=== PATIENT | female | born 1955 | race Caucasian/White ===

== ENCOUNTER 2017-05-22 14:40 | Inpatient (IN) | payer OTHER, SELFPAY ==
[2017-05-22 15:10] LABS: Anion Gap 8 mmol/L (-14-95); T. Carbon Dioxide 30.7 mmol/L (1.0-85.0); pH (Venous) 7.404 (7.35-7.45); vO2 Saturation-calc 95.9 % (0.0-100.0)
[2017-05-22 15:30] LABS: #Lymphocytes 1.6 thou/uL (1.20-3.40); #Monocytes 0.5 thou/uL (0.11-0.59); #Neutrophils 15.8 thou/uL (1.40-6.50); %Basophils 0.1 % (0.0-1.0); %Eosinophils 0.2 % (0.0-10.0); %Lymphocytes 8.9 % (21.0-51.0); %Monocytes 2.6 % (0.0-10.0); Hematocrit 50.5 % (36.0-47.0); Mean Platelet Volume 6.6 fL (7.4-10.4); Red Blood Cell (RBC) Count 5.68 mill/uL (4.20-5.40); White Blood Cell (WBC) Count 17.9 thou/uL (4.8-10.8)
--- NOTE | 2017-05-22 15:32 | RAD ---
CHEST ONE VIEW: HISTORY: Chronic obstructive pulmonary disease exacerbation. COMPARISON: Chest one view from 04/19/2013. FINDINGS: The lungs are hyperinflated. No pneumothorax. No focal air space consolidation or effusion. The ca rdiac silhouette and mediastinal contour are similar. There is a nodular density projecting in the right lower lobe, likely nipple shadow. Follow up with n ipple markers can be obtained. IMPRESSION: Mild lung hyperinflation suggestive of obstructive pulmonary disease. No acute intrathoracic abnorma lities appreciated. POS: C
[2017-05-22 15:47] LABS: Troponin I Less than 0.010 ng/mL (< 0.028)
[2017-05-22 15:49] LABS: ALT (SGPT) 17 U/L (8-55); AST (SGOT) 11 U/L (5-34); Alkaline Phosphatase 104 U/L (40-150); Anion Gap 14 mmol/L (10-20); BUN (Urea Nitrogen) 16 mg/dL (9.8-20.1); Bilirubin, Total 0.6 mg/dL (0.2-1.2); Calc. Creatinine Clearance 0 mL/min (70-130); Calcium 9.6 mg/dL (7.8-10.44); Carbon Dioxide 28 mmol/L (23-31); Chloride 102 mmol/L (98-107); Estimated GFR-MDRD 75; Globulin 2.7 g/dL (2.4-3.5)
[2017-05-22 16:27] LABS: Bilirubin Negative (Negative); Blood, Urine Negative (Negative); Glucose, Urine (Dipstick) Negative (Negative); Ketone, Urine Negative (Negative); Nitrite Negative (Negative); Protein, Urine (Dipstick) Negative (Neg-Trace); Urobilinogen 0.2 mg/dL (0.2-1.0)
[2017-05-22] MEDS ORDERED: Zolpidem Tartrate 5 MG TAB PO PRN (17:52)
[2017-05-22] MEDS ORDERED: Ondansetron HCl/PF 4 MG/2 ML Vial IVP PRN (17:52)
[2017-05-22] MEDS ORDERED: HYDROcodone/Acetaminophen 5/325 mg Tablet PO PRN (17:52)
--- NOTE | 2017-05-22 18:01 | HP ---
PRIMARY CARE PROVIDER: Kmi Post NP CHIEF COMPLAINT: The patient was referred to the [facility] by [facility] for acute respiratory failure and COPD. HISTORY OF PRESENT ILLNESS: The patient states she was hospitalized recently at [facility] for COPD. It was told while she was there she had RSV. She was discharged from the hospital on 05/18/20 17. She was sent home on O2. She was still having shortness of breath. She went for followup appoi ntment with doctor today, received steroids and 2 nebulizer therapies but still have having low O2 sa turation. She denies any fever, chills, or sweats. No chest pain. She has had a cough. Currently she is on albuterol nebs at home with Spiriva HandiHaler and 40 mg of prednisone a day. She had been on Zithromax during her hospital stay and after the hospital for a few days. PAST MEDICAL HISTORY: COPD for 2-3 years, coronary artery disease. She had a small heart attack and 3 stents placed 4 years ago at [facility]. She has hypertension, elevated cholesterol, per ipheral arterial disease. CURRENT MEDICATIONS: Aspirin 81 mg a day, Coenzyme Q10, Lipitor 40 mg a day, tizanidine 4 mg 2 every 8 hours as needed for chest pain, montelukast 10 mg a day, ramipril 5 mg a day, Proventil HFA 2 puff s q.4 hours p.r.n., Lasix 20 mg a day, metoprolol 50 mg twice a day, prednisone 20 mg twice a day, Du ghanshyam twice a day, albuterol nebs q.6 hours at home. ALLERGIES: Listed to dexamethasone unconfirmed, morphine, vancomycin unconfirmed. PAST SURGICAL HISTORY: She had a tubal ligation, tonsillectomy in the distant past. She had spontan eous pneumothorax in 1974 that required a chest tube. FAMILY HISTORY: Her mother is from esophageal CA. Her father from coronary artery dis ease. SOCIAL HISTORY: She is . Her son is at bedside. She quit smoking early in 2009. Drinks no alcohol. CODE STATUS: FULL CODE status. Her is her surrogate decision maker. He is homebound with [employer]. Her son is here. REVIEW OF SYSTEMS: General: She has sinus headaches with no dizziness or fainting. Eyes: She wears glasses. No blurr ed vision, double vision, flashing lights. Ears, nose and throat: No ear pain or drainage. No nasa l bleeding. Musculoskeletal: She has occasional dysphagia when she tries to swallow chunks of food. She states she has bad teeth and has a hard time chewing her food well. Cardiac: No chest pain, o rthopnea or paroxysmal nocturnal dyspnea. Respirations: See present illness. Gastrointestinal: No nausea, vomiting, diarrhea, constipation or melena. Genitourinary: No hematuria or dysuria. Muscu loskeletal: She states she has pain in her feet, swelling in her feet and her feet are always red. Neurologic: No strokes, seizures or focal weakness. Psychiatric: She says she has no anxiety or de pression, but does get anxious when she is short of breath. Skin: She has easy bruising on her arms with no chronic rash. Heme/Lymph: No tender or swollen lymph nodes in axilla, inguinal, or cervica l area and no history of easy bruising. PHYSICAL EXAMINATION: GENERAL: She is an alert, pleasant lady. CURRENT VITAL SIGNS: Blood pressure 149/88, pulse 76, respirations 24, temperature 98.1, O2 sat is c urrently 96 on 4 liters of O2. She was initially on BiPAP. She was weaned off of that. She was bro ught in by student outreach coordinator on BiPAP and was weaned off of that by the emergency room physician. HEENT: Reveal pupils equal, round, and reactive. Extraocular movements are intact. Sclerae white. Tympanic membranes clear. Nose is clear. Oral mucous membranes are damp. Dental hygiene: She has multiple missing teeth, especially on the upper level. NECK: Supple, no jugular venous distention, adenopathy, thyromegaly. CHEST: Hyperresonant with tight wheezes; inspiratory, expiratory in all lung zhou. HEART: Regular rate and rhythm. First and second heart sounds are clear. There are no appreciated murmurs or gallops. ABDOMEN: Soft, bowel sounds are normal. There is no hepatosplenomegaly, no mass, no rebound, no bru its. EXTREMITIES: Reveal 1+ edema. Her distal feet are red bilaterally and cool to touch. SKIN: Warm and dry with some actinic changes on her forearms with some mild ecchymoses related to th inning of the skin and minor trauma. PULSES: Carotid and radial pulses intact. Pedal pulses are significantly diminished. I was unable to palpate pedal pulses. NEUROLOGICAL: Cranial nerves II-XII are intact. Deep tendon reflexes diffusely diminished. Moves a ll extremities. IMAGING: EKG: Regular sinus rhythm with some minimal nonspecific ST-T abnormality, reviewed by me. Chest x-r ay: Reveals mild lung hyperinflation, no cardiomegaly, no CHF, no infiltrate, reviewed by me. LABORATORY DATA: White count 17.9 with an absolute neutrophilia, platelet count is remarkably 955,00 0, hemoglobin is 15.5, hematocrit is 50.5. Arterial blood gas revealed a pH of 7.4, pCO2 of 47, O2 o f 82 on 4 liters of O2. Sodium 139, potassium 4.5, chloride 102, CO2 of 28, BUN 16, creatinine 0.77, blood sugar 123. Liver function tests normal. Cardiac enzymes normal. ADMITTING DIAGNOSES: 1. Acute on chronic respiratory failure, hypoxemic. 2. Chronic obstructive pulmonary disease exacerbation. 3. Coronary artery disease, asymptomatic. 4. Hypertension. 5. Dyslipidemia. 6. Peripheral arterial disease in her legs. 7. Thrombocythemia. PLAN: 1. Admit to medical. 2. Continue IV steroids. She has received 125 mg of Solu-Medrol. She will be continued on 40 mg So liss-Medrol q.6 h. 3. IV Levaquin. 4. DuoNebs q.4 h. schedule q.2h. p.r.n. 5. Dulera 200 two puffs twice a day. 6. Spiriva daily. 7. Selected home medicines. 8. CBC daily. 9. Basic metabolic profile daily. 10. Pulmonary consult. 11. If her platelet count remains dramatically elevated, we will get a Hematology consult.
[2017-05-22 18:55] LABS: Troponin I Less than 0.010 ng/mL (< 0.028)
[2017-05-22] MEDS: Ipratropium Bromide 2.5 ml Neb NEB SCH (19:28)
[2017-05-22 20:01] VITALS: BMI 32.4
[2017-05-22 21:56] LABS: Troponin I Less than 0.010 ng/mL (< 0.028)
[2017-05-22] MEDS: Mometasone/Formoterol 120 PUFF INHALER INH SCH (22:41)
[2017-05-23] MEDS: Ipratropium Bromide 2.5 ml Neb NEB SCH ×4 (00:42→18:34)
[2017-05-23 04:39] LABS: #Eosinphils 0.1 thou/uL (0.0-0.7); #Lymphocytes 1.2 thou/uL (1.20-3.40); #Monocytes 0.2 thou/uL (0.11-0.59); #Neutrophils 16.4 thou/uL (1.40-6.50); %Basophils 0.1 % (0.0-1.0); %Eosinophils 0.5 % (0.0-10.0); %Lymphocytes 6.6 % (21.0-51.0); %Monocytes 0.9 % (0.0-10.0); Hematocrit 49.7 % (36.0-47.0); Mean Platelet Volume 6.9 fL (7.4-10.4); Red Blood Cell (RBC) Count 5.49 mill/uL (4.20-5.40); White Blood Cell (WBC) Count 17.8 thou/uL (4.8-10.8)
[2017-05-23 04:42] LABS: Anion Gap 15 mmol/L (10-20); BUN (Urea Nitrogen) 19 mg/dL (9.8-20.1); Calc. Creatinine Clearance 106 mL/min (70-130); Calcium 9.2 mg/dL (7.8-10.44); Carbon Dioxide 27 mmol/L (23-31); Chloride 101 mmol/L (98-107); Estimated GFR-MDRD 80
[2017-05-23] MEDS: Mometasone/Formoterol 120 PUFF INHALER INH SCH ×2 (06:53→18:50)
[2017-05-23] MEDS: Enoxaparin Sodium 40 MG/0.4 ML SYRINGE SC SCH (07:56)
[2017-05-23] MEDS ORDERED: PROVENTIL INHALER 6.7 G (200 INHALATIONS) INH PRN (12:08)
--- NOTE | 2017-05-23 12:11 | PDOC.PN ---
- Subjective Encounter Start Date: 05/23/17 Encounter Start Time: 12:08 Ms. Aguilar was seen today in follow-up for COPD. She is still feeling " pelon rough " but better. - Objective Resuscitation Status: Resuscitation Status FULL:Full Resuscitation MAR Reviewed: Yes Vital Signs & Weight: Vital Signs (12 hours) Temp Pulse Resp BP BP Pulse Ox 05/23/17 11:29 86 20 95 05/23/17 11:01 97.9 F 102 H 20 154/86 H 96 05/23/17 08:00 97.7 F 82 18 97 05/23/17 07:03 97.7 F 82 18 143/74 H 97 05/23/17 05:59 80 16 98 05/23/17 04:00 97.6 F 82 20 156/83 H 98 05/23/17 00:58 93 L 05/23/17 00:42 82 16 95 Weight Weight 190 lb 0.016 oz Result Diagrams: 05/23/17 03:47 05/23/17 03:47 Phys Exam - Physical Examination HEENT: PERRLA + faint respiratory wheeze, no rhonchi or rales Cardiovascular: RRR, no significant murmur Gastrointestinal: soft, non-tender, positive bowel sounds Musculoskeletal: no edema Dx/Plan (1) Acute and chronic respiratory failure Code(s): J96.20 - ACUTE AND CHR RESP FAILURE, UNSP W HYPOXIA OR HYPERCAPNIA Status: Acute (2) COPD exacerbation Code(s): J44.1 - CHRONIC OBSTRUCTIVE PULMONARY DISEASE W (ACUTE) EXACERBATION Status: Acute (3) Hypertension Code(s): I10 - ESSENTIAL (PRIMARY) HYPERTENSION Status: Acute (4) Coronary artery disease Code(s): I25.10 - ATHSCL HEART DISEASE OF [place] CORONARY ARTERY W/O ANG PCTRS Status: Acute - Plan * COPD exacerbation- improving * Will begin to jadyn steroids * Thrombocytosis- will re-start Aspirin, and consult Hematology- this may be reactive to her current condition * HTN- blood pressure is slightly elevated- re-start her home medications.
[2017-05-23] MEDS: tiZANidine HCl 4 MG TAB PO SCH ×2 (15:06→20:34)
[2017-05-23 16:54] LABS: Uric Acid 3.8 mg/dL (2.6-6.0)
--- NOTE | 2017-05-23 16:57 | CON ---
DATE OF CONSULTATION: 05/23/2017 REASON FOR CONSULTATION: Thrombocytosis. HISTORY OF PRESENT ILLNESS: Ms. Aguilar is a very pleasant 62-year-old female who was recently discharged from [facility] for RSV infection and COPD exacerbation. She was sent home on O2 and 40 mg of prednisone daily. She followed up with her primary care and was noted to be hypoxic with low oxygen saturation, so she came to the emergency room here for evaluation. Her oxygen saturation was 82% on 4 liters. She was started on IV steroids and antibiotics and admitted. Lab on admission showed a white count of 17.9, hemoglobin of 15.5 and a platelet count of 955,000. She had 88% neutrophils and 9% lymphocytes. She did receive a dose of Solu-Medrol 125 mg on admission and has remained on 40 mg IV daily. She denies any knowledge of prior elevated platelet count. She denies any history of bleeding or clotting. No family history of blood disorders. She denies any headache or blurred vision, no chest pain. She is positive for shortness of breath and cough. Denies any abdominal pain. No hematuria, hematochezia or melena. PAST MEDICAL HISTORY: 1. COPD. 2. Coronary artery disease with a stent placement 4 years ago. 3. Hypertension. 4. High cholesterol. 5. Peripheral arterial disease. PAST SURGICAL HISTORY: She had a tubal ligation, a tonsillectomy, and pneumothorax in 1974. CURRENT HOME MEDICATIONS: 1. Proventil inhaler. 2. Aspirin 81 mg daily. 3. Atorvastatin 40 mg daily. 4. Lasix 20 mg daily. 5. Lopressor 50 mg b.i.d. 6. Singulair daily. 7. Prednisone 40 mg daily. 8. Ramipril 5 mg daily. 9. Tizanidine 4 mg t.i.d. 10. CoQ10 daily. FAMILY HISTORY: Her mother had esophageal cancer. SOCIAL HISTORY: . Her son is at bedside. She is a previous smoker, quit in 2009. No alcohol or illicit drug use. REVIEW OF SYSTEMS: Twelve-point review of systems is negative except for noted in HPI. PHYSICAL EXAMINATION: VITAL SIGNS: Temperature is 97.9, pulse is 86, respiratory rate 20, BP is 154/ 86. She is 95% on 2 L. GENERAL: Chronically ill-appearing female in no acute distress. HEENT: Normocephalic, atraumatic. Pupils equal and reactive to light. NECK: Supple. CARDIOVASCULAR: Regular rate and rhythm. LUNGS: Diminished with expiratory wheezing. EXTREMITIES: No clubbing, cyanosis or edema. SKIN: No rash. HEMATOLOGIC: No petechia or purpura. NEUROLOGIC: Nonfocal. PSYCHIATRIC: The patient is alert and oriented and appropriate. PERTINENT LABORATORY AND X-RAYS: Current WBCs are 17.8, hemoglobin 14.9, hematocrit 49.7, platelet count is 859,000, 92% neutrophils, 7% lymphocytes. Sodium is 138, potassium 5.2, chloride 101, CO2 is 27, BUN is 19, creatinine 0.73, calcium is 9.2, total bilirubin is 0.6, AST is 11, ALT is 17, alkaline phosphatase is 104, CK-MB is 2.1, total protein is 7, albumin 4.3, globulin 2.7 , troponin was negative. Chest x-ray showed hyperinflation consistent with COPD. IMPRESSION: 1. Thrombocytosis present since 2012, likely exacerbated by steroids. 2. Chronic obstructive pulmonary disease exacerbation. 3. Recent respiratory syncytial virus infection. DISCUSSION: The patient's platelets have been elevated in [place] since 2002 when they were 516,000. 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 We will check JAK2 mutation. She is already taking aspirin 81 mg daily and she should continue. I do feel like her steroid usage over the last 2 weeks has increased her platelet count. I would recommend that she follow up in the outpatient setting in the next 2 weeks to recheck her labs and follow her more closely. Should she be JAK2 positive, we will start hydroxyurea daily. Thank you for the consult. We will follow her hospital course closely. FAVIOLA
[2017-05-23] MEDS: Montelukast Sodium 10 mg Tablet PO SCH (20:34)
[2017-05-24] MEDS: Ipratropium Bromide 2.5 ml Neb NEB SCH ×4 (01:11→19:16)
[2017-05-24 04:40] LABS: #Basophils 0.1 thou/uL (0.0-0.2); #Eosinphils 0.1 thou/uL (0.0-0.7); #Lymphocytes 2.9 thou/uL (1.20-3.40); #Monocytes 1.5 thou/uL (0.11-0.59); #Neutrophils 12.7 thou/uL (1.40-6.50); %Basophils 0.4 % (0.0-1.0); %Eosinophils 0.3 % (0.0-10.0); %Lymphocytes 16.9 % (21.0-51.0); %Monocytes 8.5 % (0.0-10.0); Hematocrit 47.9 % (36.0-47.0); Mean Platelet Volume 6.8 fL (7.4-10.4); Red Blood Cell (RBC) Count 5.33 mill/uL (4.20-5.40); White Blood Cell (WBC) Count 17.2 thou/uL (4.8-10.8)
[2017-05-24 04:52] LABS: Anion Gap 15 mmol/L (10-20); BUN (Urea Nitrogen) 22 mg/dL (9.8-20.1); Calc. Creatinine Clearance 102 mL/min (70-130); Calcium 9.4 mg/dL (7.8-10.44); Carbon Dioxide 26 mmol/L (23-31); Chloride 102 mmol/L (98-107); Estimated GFR-MDRD 77
[2017-05-24] MEDS: Mometasone/Formoterol 120 PUFF INHALER INH SCH ×2 (06:08→19:13)
[2017-05-24] MEDS: tiZANidine HCl 4 MG TAB PO SCH ×3 (08:13→20:14)
[2017-05-24] MEDS: Ubidecarenone 50 MG CAP PO SCH (08:13)
[2017-05-24] MEDS: Ramipril 5 MG CAP PO SCH (08:13)
[2017-05-24] MEDS: Atorvastatin Calcium 40 MG TAB PO SCH (08:14)
[2017-05-24] MEDS: Enoxaparin Sodium 40 MG/0.4 ML SYRINGE SC SCH (08:14)
--- NOTE | 2017-05-24 09:22 | PDOC.PN ---
- Subjective Encounter Start Date: 05/24/17 Encounter Start Time: 09:22 Subjective: palpatations, needs to "burp" - Objective Resuscitation Status: Resuscitation Status FULL:Full Resuscitation MAR Reviewed: Yes Vital Signs & Weight: Vital Signs (12 hours) Temp Pulse Resp BP BP Pulse Ox 05/24/17 08:13 155/82 H 05/24/17 08:00 97.7 F 159 H 93 H 155/82 H 20 L 05/24/17 06:08 107 H 18 95 05/24/17 06:06 107 H 18 95 05/24/17 04:00 97.8 F 80 20 115/75 93 L 05/24/17 02:39 94 L 05/24/17 01:11 77 12 05/24/17 00:00 97.7 F 78 20 94/63 100 Weight Weight 190 lb 0.016 oz I&O: 05/23/17 05/24/17 05/25/17 06:59 06:59 06:59 Intake Total 2600 Balance 2600 Result Diagrams: 05/24/17 03:53 05/24/17 03:53 Radiology Reviewed by me: Yes (AF WITH RVR) Phys Exam - Physical Examination Constitutional: NAD Neck: no JVD decreased BS, mild wheezes Cardiovascular: irregular tachy Gastrointestinal: soft, non-tender, positive bowel sounds Musculoskeletal: no edema Dx/Plan (1) Atrial fibrillation with rapid ventricular response Code(s): I48.91 - UNSPECIFIED ATRIAL FIBRILLATION Status: Acute (2) Acute and chronic respiratory failure Code(s): J96.20 - ACUTE AND CHR RESP FAILURE, UNSP W HYPOXIA OR HYPERCAPNIA Status: Acute (3) COPD exacerbation Code(s): J44.1 - CHRONIC OBSTRUCTIVE PULMONARY DISEASE W (ACUTE) EXACERBATION Status: Acute (4) Coronary artery disease Code(s): I25.10 - ATHSCL HEART DISEASE OF [place] CORONARY ARTERY W/O ANG PCTRS Status: Acute (5) Hypertension Code(s): I10 - ESSENTIAL (PRIMARY) HYPERTENSION Status: Acute - Plan cardizem 15mg bolus, then iv infusion -: serial tropnins -: cont nebs , etc * .
[2017-05-24] MEDS ORDERED: Magnesium 2 GM/NS 0.9% 100 ML 2 GM in Premix Bag 1 BAG IVPB SCH (10:45)
[2017-05-24] MEDS ORDERED: Enoxaparin Sodium 100 MG/ML SYRINGE SC SCH (11:00)
--- NOTE | 2017-05-24 12:07 | CON ---
DATE OF CONSULTATION: 05/24/2017 HISTORY: Alma Delia Aguilar is a 62-year-old obese female with severe COPD. In fact, she had a P FT done some time back, which showed an FEV1 was only 0.63. Less than 35% of predicted, FVC was 1.50 , less than 1.95 predicted. With marked hyperinflation. Most days she can barely walk even 50 feet without getting markedly short of breath. She is a former smoker, though she says she quit smoking for a period of time. She was seen in the ER last 24-48 ho urs with respiratory distress. No chest pain, chills or sweats. She has a known history of SVT. She saw her primary care physician, Dr. Kim Lopes and was given some prednisone. PAST MEDICAL HISTORY: Carotid disease, multiple stents, SVT, hypertension, high cholesterol, periphe ral vascular disease, severe chronic obstructive pulmonary disease, former smoker. PAST SURGICAL HISTORY: Tonsils and tubal ligation, pneumothorax 1974, chest tube. 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 HOME MEDICATIONS: Lasix 20, Enalapril 5, Tizanidine 4, prednisone 40, Singulair 10, Lopressor 50, at orvastatin, CQ 10, aspirin, sulfate. REVIEW OF SYSTEMS: Ten point negative. PHYSICAL EXAMINATION: GENERAL: Sats 95, pulse 79, blood pressure 110/74, respirations 24. CHEST: Decreased breath sounds with prolonged expiration, minimal wheezing. CARDIAC: Supraventricular tachycardia. ABDOMEN: Soft. LABORATORY: White count 20,000, H&H 14 and 47, platelet count normal, electrolytes are normal. LDH 244. IMPRESSION: 1. Respiratory failure. 2. Chronic obstructive pulmonary disease exacerbation. 3. Bronchitis. 4. Supraventricular tachycardia. 5. Atrial fibrillation. 6. Coronary artery disease. 7. Hypertension. PLAN: Magnesium is being started. She is still in rapid atrial fibrillation at a rate of 195. If she does not convert, will switch her to amiodarone. Consult Cardiology, Dr. Mcclain has been her doctor. I will follow.
[2017-05-24] MEDS ORDERED: Digoxin 0.5 MG/2 ML AMP ONE (12:15)
[2017-05-24 12:29] LABS: Troponin I 0.072 ng/mL (< 0.028)
[2017-05-24] MEDS ORDERED: Metoprolol Tartrate 5 MG/5 ML VIAL ONE (12:31)
[2017-05-24] MEDS ORDERED: Dronedarone HCl 400 MG TAB PO SCH (13:15)
[2017-05-24 15:49] LABS: Troponin I 0.121 ng/mL (< 0.028)
--- NOTE | 2017-05-24 15:57 | CON ---
DATE OF CONSULTATION: 05/24/2017 CARDIOLOGY CONSULT NOTE HISTORY OF PRESENT ILLNESS: This is a 62-year-old female with new onset atrial fibrillation with rapid ventricular response. She appears to be in the hospital after having a respiratory virus and has increasing COPD with decreased O2 saturations. She was on the medical floor when early this morning her vital signs were found to show irregular fast heart rate. EKG was obtained , she was found to have a heart rate of over 200 with what appeared to be atrial fibrillation when she was transferred down to the Intensive Care Unit for closer monitoring and evaluation. By the time I am seeing the patient, she has already been started on IV diltiazem at 15 mg an hour of the diltiazem and continues to have heart rate in the 180 range. Her blood pressure was somewhat decreased at 107/57, but she denied any chest pain. EKG did show evidence of EKG changes compatible with probable ischemia of both anterior lateral as well as the inferior. We were asked to see her for rate control and to help with assistance in her atrial fibrillation. She did undergo angioplasty and stent placement in 11/2012, I believe by Dr. Mcclain where she underwent an angioplasty and stent placement to the midright coronary artery with a 3.5 x 12 mm stent and also had a 2.5 x 12 mm stent placed into the right posterior descending artery. She had been doing very well since that time from a cardiac standpoint as far as we know. She denied any chest pain and had been doing well after she developed her respiratory problems. Her cardiac enzymes on admission were negative, but the last cardiac set of enzymes shows a troponin I of 0.072, which would not be unusual at all with someone with a heart rate of 200 with atrial fibrillation and when EKG changes compatible with ischemia. Hopefully, this will resolve after the heart rate is brought under better control. PAST MEDICAL HISTORY: Significant for coronary artery disease, myocardial infarction for which she underwent angioplasty and stent placement. She has a history of COPD. She has history of upper respiratory tract viral infection of RSV recently. She also had 2 spontaneous pneumothorax in the past. She did have a tonsillectomy, according to the records. SOCIAL HISTORY: She is . She has children who are alive and well. She stopped smoking in 2009. She has no alcohol use. She pretty much sits at home and has minimal activity due to her COPD. FAMILY HISTORY: Noncontributory. MEDICATIONS PRIOR TO ADMISSION: Included aspirin, CoQ10, atorvastatin, tizanidine, montelukast, ramipril, Proventil inhaler, furosemide, metoprolol, which she was taking 50 mg b.i.d. ALLERGIES: She is allergic to VANCOMYCIN, PAPER TAPE, and MORPHINE. REVIEW OF SYSTEMS: She wears glasses. She had no other HEENT complaints. She has poor dentition. Pulmonary: She mainly complained of COPD and shortness of breath. She no longer smokes. Cardiovascular: She had no complaints. She did not notice she was having a rapid heart rate earlier today. She has had no chest pain previously since her myocardial infarction. Gastrointestinal: No nausea, vomiting or diarrhea. No complaints such as dysuria, polyuria, or hematuria. Musculoskeletal: She has occasional edema, but otherwise unremarkable. Neurologically, no history of seizures or syncope. PHYSICAL EXAMINATION: GENERAL: Reveals an elderly female in no acute distress at this time. She was sitting on the side of the bed eating lunch. VITAL SIGNS: Her heart rate was in the 180s. Blood pressure was 120/81, patient was 107/57 and repeat is now about 130/87 after she has been given further medications. Heart rate has gone from 183 down to 1-100 to 110s. HEENT: Reveals the head to be normocephalic and atraumatic. Carotid pulses are present. There were no significant bruits. LUNGS: Chest has decreased breath sounds throughout. I cannot hear any significant rales, rhonchi or wheezing at this time. CARDIOVASCULAR: Reveals a tachycardia. Heart sounds are somewhat distant. She has a regular rhythm. I did not hear any gross murmurs, heaves, thrills, bruits or rubs. ABDOMEN: Obese with positive bowel sounds. No organomegaly or masses are noted. Femoral pulses are present. EXTREMITIES: Palpable femoral and popliteal pulses are present but decreased. I could not palpate pedal pulses. She has mild ankle edema. NEUROLOGIC: She appears to be fully intact. She seems to have normal strength and tone. SKIN: Warm and dry. She does have multiple areas of scarring on the forearms, however. IMAGING: EKG shows atrial fibrillation with rapid ventricular response with ST segment changes diffusely compatible with ischemia. IMPRESSION: 1. Atrial fibrillation with rapid ventricular response. She was on IV diltiazem at 15 mg an hour. I then gave her 0.5 mg of IV digoxin as well as 0.2 mg of IV Lopressor very slowly, this brought her heart rate down to the 110s from being 180 beats per minute. She felt somewhat better. The blood pressure did increase up to 130/87. With minimal activity, the heart rate increases again suddenly up to 120s to 130s. We will continue this medication. I will start her on Multaq. We will discuss this whether or not we may put her on amiodarone for long-term, some concern about the pulmonary problems with long-term amiodarone. She may need to undergo ablation of the atrial fibrillation. This may be the best option for her. We will obtain an echocardiogram for evaluation of the left atrial size and also for the left ventricular systolic function. If she does not convert and continues to have rapid episodes of atrial fibrillation, she may need to undergo early cardioversion, but I will try to start her on Multaq at least to have this on board prior to attempting electrical cardioversion, but if necessary, she will need to undergo early cardioversion. She has already been placed on Lovenox. We will continue that medication for now. 2. History of CAD with stent placement. She has been asymptomatic since were put in until now with the atrial fibrillation. She still denies any chest pain. 3. Severe chronic obstructive pulmonary disease. She was seen earlier today, I believe by the electronic equipment installer. She has not had a routine electronic equipment installer but has been seen by the primary physicians primary care service for her chronic obstructive pulmonary disease. 4. She does have thrombocytosis, platelet count was 729,000. This is actually I believe decreased than what it was earlier and she has been seen by Hematology. 5. Abnormal cardiac enzymes and on admission, they were negative, but now have increased slightly to 0.072, which is still indeterminate, most likely due to the atrial fibrillation with rapid ventricular response. We will continue to follow her with you, but at this time the main objective is to continue the anticoagulation and to try to decrease her heart rate. FAVIOLA
[2017-05-24] MEDS: Dronedarone HCl 400 MG TAB PO SCH (17:23)
[2017-05-24] MEDS: Digoxin 0.5 MG/2 ML AMP SLOW IVP SCH (20:13)
[2017-05-24] MEDS: Enoxaparin Sodium 100 MG/ML SYRINGE SC SCH (20:13)
[2017-05-24] MEDS: Montelukast Sodium 10 mg Tablet PO SCH (20:14)
[2017-05-24] MEDS: Metoprolol Tartrate 25 MG TAB PO SCH (20:14)
[2017-05-24] MEDS ORDERED: Enoxaparin Sodium 60 MG/0.6 ML SYRINGE SC SCH (21:00)
[2017-05-25] MEDS: Digoxin 0.5 MG/2 ML AMP SLOW IVP SCH (00:35)
[2017-05-25] MEDS: Ipratropium Bromide 2.5 ml Neb NEB SCH ×5 (00:38→23:40)
[2017-05-25] MEDS: Mometasone/Formoterol 120 PUFF INHALER INH SCH ×2 (06:42→18:45)
[2017-05-25] MEDS: Ubidecarenone 50 MG CAP PO SCH (08:24)
[2017-05-25] MEDS: Enoxaparin Sodium 100 MG/ML SYRINGE SC SCH ×2 (08:24→20:31)
[2017-05-25] MEDS: Dronedarone HCl 400 MG TAB PO SCH ×2 (08:24→16:57)
[2017-05-25] MEDS: Ramipril 5 MG CAP PO SCH (08:25)
[2017-05-25] MEDS: Atorvastatin Calcium 40 MG TAB PO SCH (08:25)
[2017-05-25] MEDS: Digoxin 0.125 MG TAB PO SCH (08:25)
[2017-05-25] MEDS: tiZANidine HCl 4 MG TAB PO SCH ×3 (08:25→20:31)
[2017-05-25] MEDS: Metoprolol Tartrate 25 MG TAB PO SCH ×2 (08:25→20:31)
--- NOTE | 2017-05-25 09:35 | PRG ---
DATE OF SERVICE: 05/25/2017 SUBJECTIVE: Ms. Aguilar still having some trouble breathing, but overall is better. PHYSICAL EXAMINATION: VITAL SIGNS: Blood pressure is high 137/63, pulse 100 and it is regular. LUNGS: Somewhat distant, but no wheezing. CARDIAC: Normal S1 and S2. ABDOMEN: Soft, nontender. The patient did convert to sinus rhythm. ASSESSMENT: 1. Atrial fibrillation, paroxysmal, but now back in normal rhythm. 2. History of hypercholesterolemia. 3. History of hypertension. PLAN: 1. Continue Multaq. 2. Continue enoxaparin. 3. The patient does not have medication insurance, we will need to start on Coumadin.
--- NOTE | 2017-05-25 10:03 | EKG ---
Test Reason : Blood Pressure : / mmHG Vent. Rate : 201 BPM Atrial Rate : 149 BPM P-R Int : 000 ms QRS Dur : 080 ms QT Int : 202 ms P-R-T Axes : 000 080 263 degrees QTc Int : 369 ms Atrial fibrillation with rapid ventricular response Marked ST abnormality, possible inferior subendocardial injury Marked ST abnormality, possible anterolateral subendocardial injury Abnormal ECG When compared with ECG of 22-MAY-2017 14:54, (Unconfirmed) Significant changes have occurred Confirmed by MICHELLE KING, DR. Soto ([id number]) on 05/25/2017 10:03:23 AM Referred By: ANAHI Confirmed By:DR. Brittany MARITNEZ MD
[2017-05-25 10:39] LABS: Prothrombin Time 14.1 SEC (12.0-14.7)
--- NOTE | 2017-05-25 11:07 | PRG ---
DATE OF SERVICE: 05/25/2017 SUBJECTIVE: This morning, the patient is better, less short of breath. PHYSICAL EXAMINATION: VITAL SIGNS: Blood pressure is 130/60, sats are 92% on 2 liters, pulse 101, respiration 18. CHEST: Decreased breath sounds, no wheezing. CARDIAC: Normal S1, S2. No gallops. ABDOMEN: Soft, no masses. IMPRESSION: Chronic obstructive pulmonary disease exacerbation, bronchitis. PLAN: Continue present treatment. Neb treatments, supportive care. Switch her to oral prednisone. We will follow.
[2017-05-25] MEDS: Acetaminophen 325 MG TAB PO PRN (16:57)
[2017-05-25] MEDS: Warfarin Sodium 5 MG TAB PO SCH (16:58)
[2017-05-25] MEDS ORDERED: Warfarin Sodium 5 MG TAB PO SCH (17:00)
--- NOTE | 2017-05-25 19:05 | PDOC.PN ---
- Subjective Encounter Start Date: 05/25/17 Encounter Start Time: 09:30 Patient seen and examined. No new complaints. No overnight events. No CP/SOB. - Objective Resuscitation Status: Resuscitation Status FULL:Full Resuscitation MAR Reviewed: Yes Vital Signs & Weight: Vital Signs (12 hours) Temp Pulse Resp BP BP Pulse Ox 05/25/17 18:29 74 18 95 05/25/17 16:57 61 102/56 L 05/25/17 16:05 97.3 F L 66 18 97/53 L 93 L 05/25/17 13:10 72 16 05/25/17 11:40 97.5 F L 66 20 107/55 L 94 L 05/25/17 08:25 101 H 05/25/17 08:20 97.7 F 101 H 20 92 L 05/25/17 08:18 97.7 F 101 H 20 137/63 92 L Weight Weight 183 lb Most Recent Monitor Data Heart Rate from ECG 78 NIBP 98/55 NIBP BP-Mean 78 Respiration from ECG 25 SpO2 96 I&O: 05/24/17 05/25/17 05/26/17 06:59 06:59 06:59 Intake Total 2600 1214.9 1440 Output Total 650 1050 Balance 2600 564.9 390 Result Diagrams: 05/24/17 03:53 05/24/17 03:53 EKG Reviewed by me: Yes (Tele SR) Phys Exam - Physical Examination Constitutional: NAD Respiratory: no wheezing, no rhonchi Scat rales Cardiovascular: RRR, no rub Gastrointestinal: soft, non-tender, positive bowel sounds Musculoskeletal: no edema Neurological: non-focal, moves all 4 limbs Psychiatric: A&O x 3 Dx/Plan - Plan IMPRESSION: 1. Acute hypoxic resp failure due to COPD exacerbation - s/p NIPPV. Pulm following 2. Afib with RVR - in SR - Anticoag started. 3. Elevated troponins due to demand ischemia 4. Hyperkalemia - resolved 5. CAD 6. HTN 7. Obesity BMI 31.2 PLAN: * Cont current meds as below * Cont supportive care * On anticoag/Multaq * Cont nebs/steroids * AM labs * Add Pepcid Review of Systems - Review of Systems Respiratory: negative: Cough, Dry, Shortness of Breath, Hemoptysis, SOB with Excertion, Pleuritic Pain, Sputum, Wheezing Cardiovascular: negative: Chest Pain, Palpitations, Orthopnea, Paroxysmal Noc. Dyspnea, Edema, Light Headedness, Other Gastrointestinal: negative: Nausea, Vomiting, Abdominal Pain, Diarrhea, Constipation, Melena, Hematochezia, Other - Medications/Allergies Allergies/Adverse Reactions: Allergies Allergy/AdvReac Type Severity Reaction Status Date / Time adhesive Allergy Verified 12/06/12 09:46 morphine Allergy Verified 05/22/17 17:56 vancomycin Allergy Verified 05/22/17 17:56 Medications: Current Medications Acetaminophen (Tylenol) 650 mg PO Q4H PRN PRN Reason: Headache/Fever or Pain Last Admin: 05/25/17 16:57 Dose: 650 mg Hydrocodone Bitart/Acetaminophen ([place] 5/325) 1 tab PO Q4H PRN PRN Reason: Moderate Pain (4-6) Albuterol Sulfate (Proventil Hfa) 2 puff INH Q6H PRN PRN Reason: SOB &/or Wheezing Albuterol/Ipratropium (Duoneb) 3 ml NEB [id number] PRN PRN Reason: SOB &/or Wheezing Last Admin: 05/25/17 00:20 Dose: 3 ml Aspirin (Aspirin Chewable) 81 mg PO DAILY [facility] Last Admin: 05/25/17 08:25 Dose: 81 mg Atorvastatin Calcium (Lipitor) 40 mg PO DAILY [facility] Last Admin: 05/25/17 08:25 Dose: 40 mg Coenzyme Q10 (Coenzyme Q10) 50 mg PO DAILY [facility] Last Admin: 05/25/17 08:24 Dose: Not Given Digoxin (Lanoxin) [facility].125 [facility] [place] Last Admin: 05/25/17 08:25 Dose: 0.125 mg Dronedarone (Multaq) 400 mg PO BID-[facility] Last Admin: 05/25/17 16:57 Dose: 400 mg Enoxaparin Sodium (Lovenox) 90 mg SC 0900,2100 [facility] Last Admin: 05/25/17 08:24 Dose: 90 mg Ipratropium [place] (Atrovent) 2.5 ml NEB [id number] [facility] Last Admin: 05/25/17 18:29 Dose: 2.5 ml Metoprolol Tartrate (Lopressor) 25 mg PO BID [facility] Last Admin: 05/25/17 08:25 Dose: 25 mg Mometasone Furoate/Formoterol Fumar (Dulera 200 Mcg/5 Mcg Inhaler) 2 puff INH BID-[facility] Last Admin: 05/25/17 18:45 Dose: 2 puff Montelukast Sodium (Singulair) 10 mg PO HS [facility] Last Admin: 05/24/17 20:14 Dose: 10 mg Prednisone (Prednisone) 40 mg PO QAM-[facility] Ramipril (Altace) 5 mg PO DAILY [facility] Last Admin: 05/25/17 08:25 Dose: 5 mg Sodium Chloride (Flush - Normal Saline) 10 ml IVF Q12HR [facility] Last Admin: 05/25/17 08:26 Dose: 10 ml Sodium Chloride (Flush - Normal Saline) 10 ml IVF PRN PRN PRN Reason: Saline Flush Last Admin: 05/24/17 20:14 Dose: 10 ml Tizanidine HCl (Zanaflex) 4 mg PO TID [facility] Last Admin: 05/25/17 14:27 Dose: 4 mg Warfarin Sodium (Coumadin) 5 mg PO 1700 [facility] Last Admin: 05/25/17 16:58 Dose: 5 mg Zolpidem Tartrate (Ambien) 5 mg PO HSPRN PRN PRN Reason: Insomnia
[2017-05-25] MEDS: Montelukast Sodium 10 mg Tablet PO SCH (20:31)
[2017-05-26 05:42] LABS: Anion Gap 10 mmol/L (10-20); BUN (Urea Nitrogen) 25 mg/dL (9.8-20.1); BUN/Creatinine Ratio 30.86; Calc. Creatinine Clearance 92 mL/min (70-130); Calcium 9.9 mg/dL (7.8-10.44); Carbon Dioxide 33 mmol/L (23-31); Chloride 96 mmol/L (98-107); Estimated GFR-MDRD 71; Magnesium 2.3 mg/dL (1.6-2.6); Phosphorus 4.2 mg/dL (2.3-4.7)
[2017-05-26 05:43] LABS: Prothrombin Time 14.3 SEC (12.0-14.7)
[2017-05-26 05:44] LABS: Hematocrit 48.6 % (36.0-47.0); Mean Platelet Volume 6.9 fL (7.4-10.4); Red Blood Cell (RBC) Count 5.46 mill/uL (4.20-5.40); White Blood Cell (WBC) Count 23.4 thou/uL (4.8-10.8)
[2017-05-26] MEDS: Ipratropium Bromide 2.5 ml Neb NEB SCH ×3 (07:01→18:46)
[2017-05-26] MEDS: Mometasone/Formoterol 120 PUFF INHALER INH SCH ×2 (07:11→18:46)
[2017-05-26] MEDS: Dronedarone HCl 400 MG TAB PO SCH ×2 (08:20→16:51)
[2017-05-26] MEDS: Ubidecarenone 50 MG CAP PO SCH (08:20)
[2017-05-26] MEDS: Atorvastatin Calcium 40 MG TAB PO SCH (08:20)
[2017-05-26] MEDS: predniSONE 20 MG TAB PO SCH (08:20)
[2017-05-26 08:21] LABS: Neutrophil 88 % (42-75); Polychromasia SLIGHT = 2-3 cells (100X) (0-2/hpf)
[2017-05-26] MEDS: Metoprolol Tartrate 25 MG TAB PO SCH ×2 (08:21→20:19)
[2017-05-26] MEDS: tiZANidine HCl 4 MG TAB PO SCH ×3 (08:21→20:19)
[2017-05-26] MEDS: Digoxin 0.125 MG TAB PO SCH (08:21)
[2017-05-26] MEDS: Ramipril 5 MG CAP PO SCH (08:21)
[2017-05-26] MEDS: Famotidine 20 MG TAB PO SCH ×2 (08:21→20:18)
[2017-05-26] MEDS: Enoxaparin Sodium 100 MG/ML SYRINGE SC SCH ×2 (08:22→20:19)
[2017-05-26] MEDS ORDERED: Warfarin Sodium 5 MG TAB PO SCH (09:00)
--- NOTE | 2017-05-26 09:20 | PRG ---
DATE OF SERVICE: 05/26/2017 SUBJECTIVE: Ms. Aguilar is feeling well today, no complaints. She is not short of breath. PHYSICAL EXAMINATION: VITAL SIGNS: Blood pressure 132/68, pulse 68, it is sinus. LUNGS: No rales, no new findings. CARDIAC: Normal S1 and normal S2. ASSESSMENT: 1. Paroxysmal atrial fibrillation, maintaining sinus rhythm. 2. Chronic obstructive pulmonary disease. 3. High platelet count. PLAN: 1. Continue Coumadin. She got Coumadin 5 mg last night. We will give her an extra dose today. 2. Continue enoxaparin. 3. Continue Multaq. 4. Dr. Bell to resume the patient's care tomorrow.
--- NOTE | 2017-05-26 10:16 | PDOC.PN ---
- Subjective Encounter Start Date: 05/26/17 Encounter Start Time: 07:45 -: old records requested/rev pt is feeling better but not baseline level, she was not on home oxygen before - Objective Resuscitation Status: Resuscitation Status FULL:Full Resuscitation MAR Reviewed: Yes Vital Signs & Weight: Vital Signs (12 hours) Temp Pulse Resp BP BP Pulse Ox 05/26/17 08:21 68 132/68 05/26/17 07:11 58 L 16 05/26/17 07:03 98 05/26/17 07:01 58 L 16 05/26/17 04:00 97.8 F 66 20 133/71 96 05/25/17 23:40 56 L 18 100 05/25/17 23:24 98.4 F 58 L 20 104/57 L 98 Weight Weight 183 lb Most Recent Monitor Data Heart Rate from ECG 78 NIBP 98/55 NIBP BP-Mean 78 Respiration from ECG 25 SpO2 96 I&O: 05/25/17 05/26/17 05/27/17 06:59 06:59 06:59 Intake Total 1214.9 2040 Output Total 650 1050 Balance 564.9 990 Result Diagrams: 05/26/17 05:01 05/26/17 05:01 EKG Reviewed by me: Yes (nsr) Phys Exam - Physical Examination Constitutional: NAD HEENT: PERRLA, moist MMs, sclera anicteric Neck: no JVD, supple Respiratory: no wheezing, no rales, no rhonchi reduced air entry both side Cardiovascular: RRR, no significant murmur, no rub Gastrointestinal: soft, non-tender, no distention, positive bowel sounds Musculoskeletal: no edema, pulses present Neurological: non-focal, normal sensation, moves all 4 limbs Psychiatric: normal affect, A&O x 3 Skin: no rash, normal turgor Dx/Plan (1) Acute on chronic respiratory failure with hypoxemia Code(s): J96.21 - ACUTE AND CHRONIC RESPIRATORY FAILURE WITH HYPOXIA Status: Acute (2) Atrial fibrillation with rapid ventricular response Code(s): I48.91 - UNSPECIFIED ATRIAL FIBRILLATION Status: Acute Comment: now rate controlled (3) COPD exacerbation Code(s): J44.1 - CHRONIC OBSTRUCTIVE PULMONARY DISEASE W (ACUTE) EXACERBATION Status: Acute (4) Demand ischemia Code(s): I24.8 - OTHER FORMS OF ACUTE ISCHEMIC HEART DISEASE Status: Acute (5) Reactive thrombocytosis Code(s): R79.89 - OTHER SPECIFIED ABNORMAL FINDINGS OF BLOOD CHEMISTRY Status : Acute (6) Coronary artery disease Code(s): I25.10 - ATHSCL HEART DISEASE OF [place] CORONARY ARTERY W/O ANG PCTRS Status: Chronic (7) Hypertension Code(s): I10 - ESSENTIAL (PRIMARY) HYPERTENSION Status: Chronic (8) Obesity (BMI 30.0-34.9) Code(s): E66.9 - OBESITY, UNSPECIFIED Status: Chronic - Plan cont current plan of care, continue antibiotics, respiratory therapy * will need to assess daily for home oxygen as she was not using before this admission and she does not have * continue current optimum medical therapy for COPD * pt is slowly improving * medication reviewed as below * symptomatic treatment. * cardiology following * warfarin started, will monitor INR daily * continue lovenox * will monitor on tele Review of Systems - Review of Systems Constitutional: negative: Fever, Chills, Sweats, Weakness, Malaise, Other Eyes: negative: Pain, Vision Change, Conjunctivae Inflammation, Eyelid Inflammation, Redness, Other ENT: negative: Ear Pain, Ear Discharge, Nose Pain, Nose Discharge, Nose Congestion, Mouth Pain, Mouth Swelling, Throat Pain, Throat Swelling, Other Respiratory: Cough, Shortness of Breath, SOB with Excertion. negative: Dry, Hemoptysis, Pleuritic Pain, Sputum, Wheezing Cardiovascular: negative: Chest Pain, Palpitations, Orthopnea, Paroxysmal Noc. Dyspnea, Edema, Light Headedness, Other Gastrointestinal: negative: Nausea, Vomiting, Abdominal Pain, Diarrhea, Constipation, Melena, Hematochezia, Other Genitourinary: negative: Dysuria, Frequency, Incontinence, Hematuria, Retention , Other Musculoskeletal: negative: Neck Pain, Shoulder Pain, Arm Pain, Back Pain, Hand Pain, Leg Pain, Foot Pain, Other Skin: negative: Rash, Lesions, Chris, Bruising, Other - Medications/Allergies Allergies/Adverse Reactions: Allergies Allergy/AdvReac Type Severity Reaction Status Date / Time adhesive Allergy Verified 12/06/12 09:46 morphine Allergy Verified 05/22/17 17:56 vancomycin Allergy Verified 05/22/17 17:56 Medications: Current Medications Acetaminophen (Tylenol) 650 mg PO Q4H PRN PRN Reason: Headache/Fever or Pain Last Admin: 05/25/17 16:57 Dose: 650 mg Hydrocodone Bitart/Acetaminophen ([place] 5/325) 1 tab PO Q4H PRN PRN Reason: Moderate Pain (4-6) Albuterol Sulfate (Proventil Hfa) 2 puff INH Q6H PRN PRN Reason: SOB &/or Wheezing Albuterol/Ipratropium (Duoneb) 3 ml NEB [id number] PRN PRN Reason: SOB &/or Wheezing Last Admin: 05/25/17 00:20 Dose: 3 ml Aspirin (Aspirin Chewable) 81 mg PO DAILY [facility] Last Admin: 05/26/17 08:21 Dose: 81 mg Atorvastatin Calcium (Lipitor) 40 mg PO DAILY [facility] Last Admin: 05/26/17 08:20 Dose: 40 mg Coenzyme Q10 (Coenzyme Q10) 50 mg PO DAILY [facility] Last Admin: 05/26/17 08:20 Dose: 50 mg [facility]oxin (Lan[facility]) [facility] Last Admin: 05/26/17 08:21 Dose: 0.125 mg Dronedarone (Multaq) 400 mg PO BID-[facility] Last Admin: 05/26/17 08:20 Dose: 400 mg Enoxaparin Sodium (Lovenox) 90 mg SC 0900,2100 [facility] Last Admin: 05/26/17 08:22 Dose: 90 mg Famotidine (Pepcid) 20 mg PO BID [facility] Last Admin: 05/26/17 08:21 Dose: 20 mg Ipratropium [place] (Atrovent) 2.5 ml NEB [id number] [facility] Last Admin: 05/26/17 07:01 Dose: 2.5 ml Metoprolol Tartrate (Lopressor) 25 mg PO BID [facility] Last Admin: 05/26/17 08:21 Dose: 25 mg Miscellaneous Medication (Pharmacy To Dose) 0 each PO PRN PRN PRN Reason: WARFARIN Pharmacy to Dose Mometasone Furoate/Formoterol Fumar (Dulera 200 Mcg/5 Mcg Inhaler) 2 puff INH BID-RT [facility] Last Admin: 05/26/17 07:11 Dose: 2 puff Montelukast Sodium (Singulair) 10 mg PO HS [facility] Last Admin: 05/25/17 20:31 Dose: 10 mg Prednisone (Prednisone) 40 mg PO QAM-[facility] Last Admin: 05/26/17 08:20 Dose: 40 mg Ramipril (Altace) 5 mg PO DAILY [facility] Last Admin: 05/26/17 08:21 Dose: 5 mg Sodium Chloride (Flush - Normal Saline) 10 ml IVF Q12HR [facility] Last Admin: 05/26/17 08:22 Dose: 10 ml Sodium Chloride (Flush - Normal Saline) 10 ml IVF PRN PRN PRN Reason: Saline Flush Last Admin: 05/24/17 20:14 Dose: 10 ml Tizanidine HCl (Zanaflex) 4 mg PO TID [facility] Last Admin: 05/26/17 08:21 Dose: 4 mg Warfarin Sodium (Coumadin) 5 mg PO 1700 [facility] Last Admin: 05/25/17 16:58 Dose: 5 mg Warfarin Sodium (Coumadin) 5 mg PO 0900 [facility] Stop: 05/26/17 11:00 Last Admin: 05/26/17 09:52 Dose: 5 mg Zolpidem Tartrate (Ambien) 5 mg PO HSPRN PRN PRN Reason: Insomnia
--- NOTE | 2017-05-26 12:14 | PRG ---
DATE OF SERVICE: 05/26/2017 SUBJECTIVE: She states she is feeling better. She is less short of breath. The sputum is clear. OBJECTIVE: VITAL SIGNS: Temperature is 97, blood pressure 130/68, sats are 98%. CHEST: Decreased breath sounds, no wheezing. CARDIAC: Normal S1, S2. No gallops. ABDOMEN: Soft, no masses. LABORATORY DATA: White count 23,000, platelet count 906. Electrolytes are normal. IMPRESSION: 1. Chronic obstructive pulmonary disease exacerbation. 2. Bronchitis. 3. Atrial fibrillation. 4. Asthma. PLAN: Continue prednisone, neb treatments. Ambulation. We will follow.
[2017-05-26] MEDS: Warfarin Sodium 5 MG TAB PO SCH (16:51)
[2017-05-26] MEDS: Montelukast Sodium 10 mg Tablet PO SCH (20:18)
[2017-05-27] MEDS: Ipratropium Bromide 2.5 ml Neb NEB SCH ×4 (00:08→19:26)
[2017-05-27 05:38] LABS: Prothrombin Time 27.3 SEC (12.0-14.7)
[2017-05-27] MEDS: Mometasone/Formoterol 120 PUFF INHALER INH SCH ×2 (07:15→19:18)
[2017-05-27] MEDS: tiZANidine HCl 4 MG TAB PO SCH ×3 (09:08→20:40)
[2017-05-27] MEDS: Ramipril 5 MG CAP PO SCH (09:08)
[2017-05-27] MEDS: Digoxin 0.125 MG TAB PO SCH (09:09)
[2017-05-27] MEDS: Dronedarone HCl 400 MG TAB PO SCH ×2 (09:09→16:34)
[2017-05-27] MEDS: predniSONE 20 MG TAB PO SCH (09:09)
[2017-05-27] MEDS: Atorvastatin Calcium 40 MG TAB PO SCH (09:11)
[2017-05-27] MEDS: Famotidine 20 MG TAB PO SCH ×2 (09:11→20:40)
[2017-05-27] MEDS: Ubidecarenone 50 MG CAP PO SCH (09:11)
[2017-05-27] MEDS: Metoprolol Tartrate 25 MG TAB PO SCH ×2 (09:11→20:40)
--- NOTE | 2017-05-27 10:14 | PDOC.PN ---
- Subjective Encounter Start Date: 05/27/17 Encounter Start Time: 08:15 pt feels 50% improvement, no fever, but she is weak - Objective Resuscitation Status: Resuscitation Status FULL:Full Resuscitation MAR Reviewed: Yes Vital Signs & Weight: Vital Signs (12 hours) Temp Pulse Resp BP BP Pulse Ox 05/27/17 09:09 85 05/27/17 09:08 135/71 05/27/17 08:30 97.7 F 85 18 135/71 95 05/27/17 07:15 67 16 95 05/27/17 07:13 67 16 95 05/27/17 04:15 99 05/27/17 04:00 97.8 F 66 20 137/65 99 05/27/17 00:25 98 05/27/17 00:08 60 12 05/27/17 00:00 97.5 F L 61 18 117/59 L 98 Weight Weight 188 lb 3.2 oz Most Recent Monitor Data Heart Rate from ECG 78 NIBP 98/55 NIBP BP-Mean 78 Respiration from ECG 25 SpO2 96 I&O: 05/26/17 05/27/17 05/28/17 06:59 06:59 06:59 Intake Total 2040 1850 Output Total 1050 950 Balance 990 900 Result Diagrams: 05/26/17 05:01 05/26/17 05:01 EKG Reviewed by me: Yes Phys Exam - Physical Examination Constitutional: NAD HEENT: PERRLA, moist MMs, sclera anicteric Neck: no JVD, supple Respiratory: no wheezing, no rales, no rhonchi reduced air entry Cardiovascular: no significant murmur, irregular Gastrointestinal: soft, non-tender, no distention, positive bowel sounds Musculoskeletal: no edema, pulses present Neurological: non-focal, normal sensation Lymphatic: no nodes Psychiatric: normal affect, A&O x 3 Skin: no rash, normal turgor Dx/Plan (1) Acute on chronic respiratory failure with hypoxemia Code(s): J96.21 - ACUTE AND CHRONIC RESPIRATORY FAILURE WITH HYPOXIA Status: Acute (2) Atrial fibrillation with rapid ventricular response Code(s): I48.91 - UNSPECIFIED ATRIAL FIBRILLATION Status: Acute Comment: now rate controlled (3) COPD exacerbation Code(s): J44.1 - CHRONIC OBSTRUCTIVE PULMONARY DISEASE W (ACUTE) EXACERBATION Status: Acute (4) Demand ischemia Code(s): I24.8 - OTHER FORMS OF ACUTE ISCHEMIC HEART DISEASE Status: Acute (5) Reactive thrombocytosis Code(s): R79.89 - OTHER SPECIFIED ABNORMAL FINDINGS OF BLOOD CHEMISTRY Status : Acute (6) Coronary artery disease Code(s): I25.10 - ATHSCL HEART DISEASE OF [place] CORONARY ARTERY W/O ANG PCTRS Status: Chronic (7) Hypertension Code(s): I10 - ESSENTIAL (PRIMARY) HYPERTENSION Status: Chronic (8) Obesity (BMI 30.0-34.9) Code(s): E66.9 - OBESITY, UNSPECIFIED Status: Chronic - Plan cont current plan of care, PT/OT, respiratory therapy * start PT today * continue prednisone * continue current optimum medical therapy for COPD * wean off oxygen if not needed * will consider medical transfer if cardiology OK, as now rate is controlled * monitor INR * medication reviewed as below * symptomatic treatment. Review of Systems - Review of Systems Constitutional: Weakness. negative: Fever, Chills, Sweats, Malaise, Other Respiratory: Cough, Shortness of Breath. negative: Dry, Hemoptysis, SOB with Excertion, Pleuritic Pain, Sputum, Wheezing Cardiovascular: negative: Chest Pain, Palpitations, Orthopnea, Paroxysmal Noc. Dyspnea, Edema, Light Headedness, Other Gastrointestinal: negative: Nausea, Vomiting, Abdominal Pain, Diarrhea, Constipation, Melena, Hematochezia, Other Genitourinary: negative: Dysuria, Frequency, Incontinence, Hematuria, Retention , Other Musculoskeletal: negative: Neck Pain, Shoulder Pain, Arm Pain, Back Pain, Hand Pain, Leg Pain, Foot Pain, Other Skin: negative: Rash, Lesions, Chris, Bruising, Other - Medications/Allergies Allergies/Adverse Reactions: Allergies Allergy/AdvReac Type Severity Reaction Status Date / Time adhesive Allergy Verified 12/06/12 09:46 morphine Allergy Verified 05/22/17 17:56 vancomycin Allergy Verified 05/22/17 17:56 Medications: Current Medications Acetaminophen (Tylenol) 650 mg PO Q4H PRN PRN Reason: Headache/Fever or Pain Last Admin: 05/25/17 16:57 Dose: 650 mg Hydrocodone Bitart/Acetaminophen ([place] 5/325) 1 tab PO Q4H PRN PRN Reason: Moderate Pain (4-6) Albuterol Sulfate (Proventil Hfa) 2 puff INH Q6H PRN PRN Reason: SOB &/or Wheezing Albuterol/Ipratropium (Duoneb) 3 ml NEB [id number] PRN PRN Reason: SOB &/or Wheezing Last Admin: 05/25/17 00:20 Dose: 3 ml Aspirin (Aspirin Chewable) 81 mg PO DAILY [facility] Last Admin: 05/27/17 09:09 Dose: 81 mg Atorvastatin Calcium (Lipitor) 40 mg PO DAILY [facility] Last Admin: 05/27/17 09:11 Dose: 40 mg Coenzyme Q10 (Coenzyme Q10) 50 mg PO DAILY [facility] Last Admin: 05/27/17 09:11 Dose: Not Given [facility] ([facility]) [facility] Last Admin: 05/27/17 09:09 Dose: 0.125 mg Dronedarone (Multaq) 400 mg PO BID-[facility] Last Admin: 05/27/17 09:09 Dose: 400 mg Famotidine (Pepcid) 20 mg PO BID [facility] Last Admin: 05/27/17 09:11 Dose: 20 mg Ipratropium [place] (Atrovent) 2.5 ml NEB [id number] [facility] Last Admin: 05/27/17 07:13 Dose: 2.5 ml Metoprolol Tartrate (Lopressor) 25 mg PO BID [facility] Last Admin: 05/27/17 09:11 Dose: 25 mg Miscellaneous Medication (Pharmacy To Dose) 0 each PO PRN PRN PRN Reason: WARFARIN Pharmacy to Dose Mometasone Furoate/Formoterol Fumar (Dulera 200 Mcg/5 Mcg Inhaler) 2 puff INH BID-RT [facility] Last Admin: 05/27/17 07:15 Dose: 2 puff Montelukast Sodium (Singulair) 10 mg PO HS [facility] Last Admin: 05/26/17 20:18 Dose: 10 mg Prednisone (Prednisone) 40 mg PO QAM-[facility] Last Admin: 05/27/17 09:09 Dose: 40 mg Ramipril (Altace) 5 mg PO DAILY [facility] Last Admin: 05/27/17 09:08 Dose: 5 mg Sodium Chloride (Flush - Normal Saline) 10 ml IVF Q12HR [facility] Last Admin: 05/27/17 09:12 Dose: 10 ml Sodium Chloride (Flush - Normal Saline) 10 ml IVF PRN PRN PRN Reason: Saline Flush Last Admin: 05/24/17 20:14 Dose: 10 ml Tizanidine HCl (Zanaflex) 4 mg PO TID [facility] Last Admin: 05/27/17 09:08 Dose: 4 mg Warfarin Sodium (Coumadin) 2.5 mg PO 1700 [facility] Zolpidem Tartrate (Ambien) 5 mg PO HSPRN PRN PRN Reason: Insomnia
[2017-05-27] MEDS: Acetaminophen 325 MG TAB PO PRN (10:44)
--- NOTE | 2017-05-27 12:25 | PRG ---
DATE OF SERVICE: 05/27/2017 SUBJECTIVE: Ms. Alma Delia Aguilar is a 62-year-old female who this morning said she is less short of breat h. OBJECTIVE: VITAL SIGNS: Sats are 95%, blood pressure 121/79, temperature 97 and pulse 80. CHEST: Decreased breath sounds without any wheezing. CARDIAC: Normal S1 and S2. ABDOMEN: Soft. No masses. LABORATORY DATA: INR is 2.4. IMPRESSION: Chronic obstructive pulmonary disease exacerbation and bronchitis. PLAN: Continue ambulation, neb treatments and supportive care. We will follow.
[2017-05-27] MEDS: Montelukast Sodium 10 mg Tablet PO SCH (20:40)
[2017-05-28] MEDS: Ipratropium Bromide 2.5 ml Neb NEB SCH ×2 (00:34→07:11)
[2017-05-28 05:17] LABS: Prothrombin Time 27.9 SEC (12.0-14.7)
[2017-05-28] MEDS: Mometasone/Formoterol 120 PUFF INHALER INH SCH ×2 (07:13→19:03)
--- NOTE | 2017-05-28 08:45 | PRG ---
DATE OF SERVICE: 05/28/2017 SUBJECTIVE: The patient was seen and examined at the bedside. She is feeling significantly better. She is able to ambulate around the bed. She participates in physical therapy. She did not have any bowel movement for the last few days. She would like to have a stool softener. Her appetite is goo d. OBJECTIVE: VITAL SIGNS: Blood pressure is 126/61, temperature is 97.6, pulse is 67, respiratory rate is 18, O2 saturation is 99% on 1.5 liters. HEENT: Her head is atraumatic, normocephalic. She is almost edentulous. Eyes: Pupils are respondi ng to light properly. Sclerae is nonicteric. Conjunctivae pinkish. Oral mucosa is somewhat dry. NECK: Supple, no lymphadenopathy. LUNGS: Clear, no wheezing, no rales. CARDIOVASCULAR: S1, S2, somewhat distant. No S3, no S4. ABDOMEN: Soft, nontender. Bowel sounds are present. EXTREMITIES: The temperature of the skin is diminished, the feet feel cold to touch and has this swe lling approximately 1+ to one and a half plus edema. NEUROLOGIC: She is alert and oriented x4. There is not any motor deficits. Cranial nerves are inta ct. LABORATORY DATA: Showed INR of 2.5 and PT of 27.9. Triglycerides 133, cholesterol 134, LDL 72, HDL 35 and heart disease risk ratio 3.8. MICROBIOLOGY: None. IMPRESSION: 1. Acute on chronic respiratory failure with hypoxemia, improved. 2. Paroxysmal atrial fibrillation with rapid ventricular response. The patient is in sinus rhythm a t this point, no episodes of atrial fibrillation overnight. 3. Chronic obstructive pulmonary disease exacerbation, improved. 4. Demand ischemia, resolved. 5. Reactive thrombocytosis. The patient was seen by tungsten tender. JAK2 mutation testing was sent o ms and we are waiting for the results to come back. There is suspicion that her thrombocytopenia is most likely secondary to steroid use plus underlying myeloproliferative disorder was not ruled out ye t. 6. Hypertension. 7. Coronary artery disease. 8. Obesity. PLAN: Continue her PT and OT. Continue respiratory therapy. Continue prednisone at 40 mg once a da y, additional day, we will start tapering tomorrow. The patient is on Multaq. Her rate and rhythm a re controlled. She is in sinus rhythm. Will do desaturation studies today and will see whether she requires for O2 and I anticipate discharge in the next 24 hours if she does well with physical therap y. Her lives at home, but he has chronic obstructive pulmonary disease too, and he is on oxy gen, so the patient will need to have probably a home healthcare agency nurse visits plus physical th erapist arranged through the agency. At this point, we will continue her current regimen. We will a dd Colace to move her bowels and she seems to be doing significantly better.
[2017-05-28] MEDS: predniSONE 20 MG TAB PO SCH (10:00)
[2017-05-28] MEDS: Metoprolol Tartrate 25 MG TAB PO SCH ×2 (10:00→21:04)
[2017-05-28] MEDS: Famotidine 20 MG TAB PO SCH ×2 (10:00→21:04)
[2017-05-28] MEDS: Digoxin 0.125 MG TAB PO SCH (10:01)
[2017-05-28] MEDS: Ubidecarenone 50 MG CAP PO SCH (10:01)
[2017-05-28] MEDS: Dronedarone HCl 400 MG TAB PO SCH (10:02)
[2017-05-28] MEDS: Ramipril 5 MG CAP PO SCH (10:02)
[2017-05-28] MEDS: Docusate 100 MG CAP PO SCH ×2 (10:02→21:03)
[2017-05-28] MEDS: tiZANidine HCl 4 MG TAB PO SCH ×3 (10:03→21:04)
[2017-05-28] MEDS: Atorvastatin Calcium 40 MG TAB PO SCH (10:03)
--- NOTE | 2017-05-28 11:11 | PRG ---
DATE OF SERVICE: 05/28/2017 She is better. She is less short of breath, less coughing. PHYSICAL EXAMINATION: VITAL SIGNS: Vital signs stable. CHEST: Chest reveals decreased breath sounds without any wheezing. CARDIAC: Normal S1, S2. ABDOMEN: Soft, no masses. IMPRESSION: Severe chronic obstructive pulmonary disease. PLAN: Disposition as per primary care physician. She can be discharged home anytime. Follow up with her primary physician and maintenance service supervisor.
[2017-05-28] MEDS: Acetaminophen 325 MG TAB PO PRN (13:23)
[2017-05-28] MEDS: Propafenone HCl 150 MG TAB PO SCH ×2 (15:44→21:05)
[2017-05-28] MEDS ORDERED: Warfarin Sodium 2.5 MG TAB PO SCH (17:00)
[2017-05-28] MEDS ORDERED: Atorvastatin Calcium 40 MG TAB PO SCH (21:00)
[2017-05-28] MEDS: Montelukast Sodium 10 mg Tablet PO SCH (21:04)
[2017-05-29 05:06] LABS: Prothrombin Time 30.8 SEC (12.0-14.7)
[2017-05-29] MEDS: Propafenone HCl 150 MG TAB PO SCH ×2 (05:21→14:48)
[2017-05-29] MEDS: Mometasone/Formoterol 120 PUFF INHALER INH SCH (06:59)
[2017-05-29] MEDS ORDERED: predniSONE 20 MG TAB PO SCH ×3 (08:00→09:45)
--- NOTE | 2017-05-29 09:47 | PRG ---
DATE OF SERVICE: 05/29/2017 Ms. Aguilar is much improved, less short of breath, less coughing and wheezing. She [place] PHYSICAL EXAMINATION: VITAL SIGNS: Sats are 98% on 2 liters, temperature 98, blood pressure 100/60. CHEST: No wheezing. CARDIAC: Normal S1, S2. IMPRESSION: 1. Chronic obstructive pulmonary disease exacerbation. 2. Bronchitis. 3. Supraventricular tachycardia. PLAN: From a pulmonary standpoint of view she is ready to be discharged home today. Follow with her primary care physician. Taper prednisone over a week.
[2017-05-29] MEDS: Digoxin 0.125 MG TAB PO SCH (10:32)
[2017-05-29] MEDS: Famotidine 20 MG TAB PO SCH (10:32)
[2017-05-29] MEDS: Metoprolol Tartrate 25 MG TAB PO SCH (10:33)
[2017-05-29] MEDS: Docusate 100 MG CAP PO SCH (10:33)
[2017-05-29] MEDS: Ramipril 5 MG CAP PO SCH (10:34)
[2017-05-29] MEDS: Ubidecarenone 50 MG CAP PO SCH (10:38)
[2017-05-29] MEDS: tiZANidine HCl 4 MG TAB PO SCH (10:38)
--- NOTE | 2017-05-29 11:48 | PDOC.PN ---
- Subjective Encounter Start Date: 05/29/17 Encounter Start Time: 07:20 Patient seen and examined. No new complaints. No overnight events - Objective Resuscitation Status: Resuscitation Status FULL:Full Resuscitation MAR Reviewed: Yes Vital Signs & Weight: Vital Signs (12 hours) Temp Pulse Resp BP BP Pulse Ox 05/29/17 11:42 65 16 97 05/29/17 10:34 133/66 05/29/17 10:32 68 05/29/17 08:00 97.1 F L 68 18 133/66 95 05/29/17 06:59 66 16 98 05/29/17 06:58 66 16 98 05/29/17 04:00 97.5 F L 61 18 109/60 96 05/29/17 00:41 64 16 99 Weight Weight 188 lb 4.8 oz Most Recent Monitor Data Heart Rate from ECG 78 NIBP 98/55 NIBP BP-Mean 78 Respiration from ECG 25 SpO2 96 I&O: 05/28/17 05/29/17 05/30/17 06:59 06:59 06:59 Intake Total 1520 1300 360 Output Total 2350 1650 Balance -830 -350 360 Result Diagrams: 05/26/17 05:01 05/26/17 05:01 EKG Reviewed by me: Yes Phys Exam - Physical Examination Constitutional: NAD HEENT: PERRLA, moist MMs, sclera anicteric Neck: no JVD, supple Respiratory: no wheezing, no rales, no rhonchi Cardiovascular: RRR, no significant murmur, no rub Gastrointestinal: soft, non-tender, no distention, positive bowel sounds Musculoskeletal: no edema, pulses present Neurological: non-focal, normal sensation, moves all 4 limbs Psychiatric: normal affect, A&O x 3 Skin: no rash, normal turgor Dx/Plan (1) Acute on chronic respiratory failure with hypoxemia Code(s): J96.21 - ACUTE AND CHRONIC RESPIRATORY FAILURE WITH HYPOXIA Status: Acute (2) Atrial fibrillation with rapid ventricular response Code(s): I48.91 - UNSPECIFIED ATRIAL FIBRILLATION Status: Acute Comment: now rate controlled (3) COPD exacerbation Code(s): J44.1 - CHRONIC OBSTRUCTIVE PULMONARY DISEASE W (ACUTE) EXACERBATION Status: Acute (4) Demand ischemia Code(s): I24.8 - OTHER FORMS OF ACUTE ISCHEMIC HEART DISEASE Status: Acute (5) Reactive thrombocytosis Code(s): R79.89 - OTHER SPECIFIED ABNORMAL FINDINGS OF BLOOD CHEMISTRY Status : Acute (6) Coronary artery disease Code(s): I25.10 - ATHSCL HEART DISEASE OF [place] CORONARY ARTERY W/O ANG PCTRS Status: Chronic (7) Hypertension Code(s): I10 - ESSENTIAL (PRIMARY) HYPERTENSION Status: Chronic (8) Obesity (BMI 30.0-34.9) Code(s): E66.9 - OBESITY, UNSPECIFIED Status: Chronic - Plan cont current plan of care, hospice social worker, respiratory therapy * medication reviewed as below * symptomatic treatment * see discharge summery * oxygen. Review of Systems - Review of Systems ENT: negative: Ear Pain, Ear Discharge, Nose Pain, Nose Discharge, Nose Congestion, Mouth Pain, Mouth Swelling, Throat Pain, Throat Swelling, Other Respiratory: negative: Cough, Dry, Shortness of Breath, Hemoptysis, SOB with Excertion, Pleuritic Pain, Sputum, Wheezing Cardiovascular: negative: Chest Pain, Palpitations, Orthopnea, Paroxysmal Noc. Dyspnea, Edema, Light Headedness, Other Gastrointestinal: negative: Nausea, Vomiting, Abdominal Pain, Diarrhea, Constipation, Melena, Hematochezia, Other Genitourinary: negative: Dysuria, Frequency, Incontinence, Hematuria, Retention , Other Musculoskeletal: negative: Neck Pain, Shoulder Pain, Arm Pain, Back Pain, Hand Pain, Leg Pain, Foot Pain, Other - Medications/Allergies Allergies/Adverse Reactions: Allergies Allergy/AdvReac Type Severity Reaction Status Date / Time adhesive Allergy Verified 12/06/12 09:46 morphine Allergy Verified 05/22/17 17:56 vancomycin Allergy Verified 05/22/17 17:56 Medications: Current Medications Acetaminophen (Tylenol) 650 mg PO Q4H PRN PRN Reason: Headache/Fever or Pain Last Admin: 05/28/17 13:23 Dose: 650 mg Hydrocodone Bitart/Acetaminophen (Kopperl 5/325) 1 tab PO Q4H PRN PRN Reason: Moderate Pain (4-6) Albuterol Sulfate (Proventil Hfa) 2 puff INH Q6H PRN PRN Reason: SOB &/or Wheezing Albuterol/Ipratropium (Duoneb) 3 ml NEB [id number] PRN PRN Reason: SOB &/or Wheezing Last Admin: 05/27/17 19:04 Dose: 3 ml Albuterol/Ipratropium (Duoneb) 3 ml NEB [id number] [facility] Last Admin: 05/29/17 11:42 Dose: 3 ml Aspirin (Aspirin Chewable) 81 mg PO DAILY [facility] Last Admin: 05/29/17 10:39 Dose: 81 mg Atorvastatin Calcium (Lipitor) 80 mg PO HS [facility] Last Admin: 05/28/17 21:04 Dose: 80 mg Coenzyme Q10 (Coenzyme Q10) 50 mg PO DAILY [facility] Last Admin: 05/29/17 10:38 Dose: Not Given Digoxin (Lanoxin) 0.125 mg PO QAM [facility] Last Admin: 05/29/17 10:32 Dose: 0.125 mg Docusate Sodium (Colace) 100 mg PO BID [facility] Last Admin: 05/29/17 10:33 Dose: 100 mg Famotidine (Pepcid) 20 mg PO BID [facility] Last Admin: 05/29/17 10:32 Dose: 20 mg Metoprolol Tartrate (Lopressor) 25 mg PO BID [facility] Last Admin: 05/29/17 10:33 Dose: 25 mg Miscellaneous Medication (Pharmacy To Dose) 0 each PO PRN PRN PRN Reason: WARFARIN Pharmacy to Dose Mometasone Furoate/Formoterol Fumar (Dulera 200 Mcg/5 Mcg Inhaler) 2 puff INH BID-RT [facility] Last Admin: 05/29/17 06:59 Dose: 2 puff Montelukast Sodium (Singulair) 10 mg PO HS [facility] Last Admin: 05/28/17 21:04 Dose: 10 mg Prednisone (Prednisone) 20 mg PO QAM-[facility] Propafenone HCl (Rythmol) 150 mg PO Q8HR [facility] Last Admin: 05/29/17 05:21 Dose: 150 mg Ramipril (Altace) 5 mg PO DAILY [facility] Last Admin: 05/29/17 10:34 Dose: 5 mg Sodium Chloride (Flush - Normal Saline) 10 ml IVF Q12HR [facility] Last Admin: 05/29/17 10:35 Dose: 10 ml Sodium Chloride (Flush - Normal Saline) 10 ml IVF PRN PRN PRN Reason: Saline Flush Last Admin: 05/24/17 20:14 Dose: 10 ml Tizanidine HCl (Zanaflex) 4 mg PO TID [facility] Last Admin: 05/29/17 10:38 Dose: Not Given Warfarin Sodium (Coumadin) 2.5 mg PO 1700 TAMIKO Last Admin: 05/28/17 17:30 Dose: 2.5 mg Zolpidem Tartrate (Ambien) 5 mg PO HSPRN PRN PRN Reason: Insomnia
[2017-05-29 12:00] VITALS: BP 126/72; TEMP 97.6
--- NOTE | 2017-05-29 14:15 | DIS ---
PRIMARY CARE PHYSICIAN: Kim Post family nurse practitioner DATE OF ADMISSION: 05/22/2017 DATE OF DISCHARGE: 05/29/2017 DISCHARGE DISPOSITION: Home. PRIMARY DISCHARGE DIAGNOSES: 1. Acute on chronic respiratory failure with hypoxia. 2. Atrial fibrillation with rapid ventricular response. 3. Chronic obstructive pulmonary disease exacerbation. 4. Demand ischemia. 5. Reactive thrombocytosis. SECONDARY DISCHARGE DIAGNOSES: Coronary artery disease, hypertension, obesity, COPD. PRIMARY PROCEDURE/OPERATION: None. RADIOLOGICAL INVESTIGATION: Chest x-ray on admission showed no acute cardiopulmonary process. Echoc ardiography showed normal EF. SIGNIFICANT LABS: WBC 23.4, hemoglobin 14.7, platelet 906. INR 2.8. Sodium 135, potassium 4.4, BUN 25, creatinine 0.81, calcium 9.9. Uric acid 3.8, troponin 0.160, LDL 72. LFTs normal. Cardiac enz ymes, troponin 0.160. Urinalysis normal. DISCHARGE MEDICATIONS: Proventil HFA 2 puffs q.6h. p.r.n., aspirin 81 mg p.o. daily, Lipitor 40 mg p .o. at bedtime, digoxin 0.125 mg p.o. daily, Pepcid 20 mg p.o. b.i.d., Lasix 20 mg p.o. daily, Lopres sor 25 mg p.o. b.i.d., Dulera 2 puffs inhalation b.i.d., Singulair 10 mg p.o. daily, prednisone 20 mg p.o. daily for 7 days, then 10 mg p.o. daily for 7 days, propafenone 150 mg p.o. q.8h., ramipril 5 m g p.o. daily, Zanaflex 4 mg t.i.d. p.r.n., and Coenzyme Q10 100 mg p.o. daily, warfarin 2.5 mg p.o. d aily (to make INR 2-3). CONTRAINDICATIONS: None. CODE STATUS: FULL CODE. INPATIENT CONSULTANTS: Dr. Moreno was following while in hospital for atrial fibrillation wi th rapid ventricular response. Dr. Vela was following for COPD exacerbation. TEST RESULTS PENDING ON DISCHARGE: None. ALLERGIES: MORPHINE and VANCOMYCIN. DISCHARGE PLAN: Post hospital, the patient is discharged home with home oxygen. The patient will fo llow up with Dr. Vela and primary care physician in 1 week. The patient will follow up with Cardiolo wagner as instructed. HOSPITAL COURSE: A 62-year-old female who was admitted by Dr. Gentile on 05/22/2017. Please see his H &P for further details. The patient was admitted for increasing shortness of breath. She was hypoxi c in the Emergency Room. She failed her home therapy. She was also found with COPD exacerbation. S he was admitted to initially medical floor, but subsequently patient developed atrial fibrillation wi th RVR and required a telemetry transfer. At that point, Cardiology was also consulted. The patient was treated with propafenone, digoxin and metoprolol with rate controlled. Regarding COPD flareup a nd hypoxia the patient was followed by Dr. Vela while in hospital. Over next several days, the raven oro's condition was stabilized. We were accessing her daily while in hospital to look for whether she needs home oxygen therapy or not, but she was meeting criteria for home oxygen therapy. With help o f geriatric case manager, we arranged oxygen before discharge. While in the hospital, the patient received ant ibiotic therapy, IV steroid, and on discharge we changed to tapering doses of prednisone. The trae vega has finished completely antibiotic course while in hospital. For her new onset atrial fibrillation , Cardiology recommended chronic anticoagulation and that is why warfarin was started. The patient w as given instruction to monitor PT/INR and follow up with primary care physician within 1 week for IN R check. All new medication prescriptions given to her. The patient is seen and examined at bedside today. Please see my progress note from today for furthe r details. Total time spent on discharge day 31 minutes.
[2017-05-30] MEDS ORDERED: predniSONE 20 MG TAB PO SCH (08:00)
== END 2017-05-29 16:00 | disposition home or self-care (01) | DRG 189 ==
LOC: ERS 14:40 → T4-B 16:43 → CCU 05-24 09:52 → 2NO 05-24 18:25
PROVIDERS: ADMIT Internal Medicine; ATTEND Internal Medicine
PROC: 5A09357 Assistance with Respiratory Ventilation, Less than 24 Consecutive Hours, Continuous Positive Airway Pressure (ICD-10-PCS; principal; 2017-05-22)
DX: J96.21 Acute and chronic respiratory failure with hypoxia (principal); I24.8 Other forms of acute ischemic heart disease; J44.1 Chronic obstructive pulmonary disease with (acute) exacerbation; I47.1 Supraventricular tachycardia; I51.81 Takotsubo syndrome; I10 Essential (primary) hypertension; I25.10 Atherosclerotic heart disease of native coronary artery without angina pectoris; I25.2 Old myocardial infarction; Z95.5 Presence of coronary angioplasty implant and graft; I73.9 Peripheral vascular disease, unspecified; Z79.82 Long term (current) use of aspirin; Z88.1 Allergy status to other antibiotic agents; Z88.5 Allergy status to narcotic agent; Z87.891 Personal history of nicotine dependence; D47.3 Essential (hemorrhagic) thrombocythemia; J40 Bronchitis, not specified as acute or chronic; I48.0 Paroxysmal atrial fibrillation; E66.9 Obesity, unspecified; Z68.32 Body mass index [BMI] 32.0-32.9, adult; E78.00 Pure hypercholesterolemia, unspecified; E87.5 Hyperkalemia; I08.3 Combined rheumatic disorders of mitral, aortic and tricuspid valves
CPT/HCPCS: 36415; 71010; 80048; 80053; 80061; 80069; 81003; 81270; 82330; 82553; 82803; 83615; 83735; 84484; 84550; 85025; 85610; 93005; 93010; 93306; 94640; 94660; A4216; G8978-GP-CJ; G8979-GP-CI; G8987-GO-CI; G8988-GO-CI; G8989-GO-CI; J1160; J1650; J2920; J3475; J7050; J7506; J7620; J7644

== ENCOUNTER 2017-07-04 09:29 | Observation (INO) | payer OTHER, SELFPAY ==
[2017-07-04] MEDS ORDERED: methylPREDNISolone Sod Succ/PF 125 MG/2 ML VIAL ONE (09:53)
[2017-07-04 09:55] LABS: Actual Bicarbonate (HCO3a) 28.6 mEq/L (22-26); Analyzer IN Cardio ER; Base Excess (BEa) 3.4 mEq/L (0 (+/-) 2.5); CO2 Tension 46.1 mmHg (35.0-45.0); Calcium, Ionized 1.2 mmol/L (1.12-1.30); Hematocrit-ABG 39.6 % (36.0-47.0); Hemoglobin (Hb) 12.4 g/dL (12.0-16.0); O2 Tension (PaO2) 92.4 mmHg (80.0-100.0); Puncture Site RRA; pH, Arterial 7.41 (7.35-7.45)
[2017-07-04 10:08] LABS: #Basophils 0.1 thou/uL (0.0-0.2); #Eosinphils 0.1 thou/uL (0.0-0.7); #Lymphocytes 1.6 thou/uL (1.20-3.40); #Monocytes 0.6 thou/uL (0.11-0.59); #Neutrophils 7.3 thou/uL (1.40-6.50); %Basophils 0.6 % (0.0-1.0); %Eosinophils 1.4 % (0.0-10.0); %Lymphocytes 16.3 % (21.0-51.0); %Monocytes 6.2 % (0.0-10.0); %Neutrophils 75.6 % (42.0-75.0); Hemoglobin 12.8 g/dL (12.0-16.0); Mean Corpuscular HGB CONC 31.6 g/dL (32.0-36.0); Mean Corpuscular Hemoglobin 28.7 pg (27.0-31.0); Mean Corpuscular Volume 90.6 fl (81.0-99.0); Mean Platelet Volume 6.4 fL (7.4-10.4); Platelet Count 749 thou/uL (130-400); RBC Distribution Width 17.3 % (11.5-14.5); Red Blood Cell (RBC) Count 4.48 mill/uL (4.20-5.40); White Blood Cell (WBC) Count 9.7 thou/uL (4.8-10.8)
[2017-07-04 10:14] LABS: ALT (SGPT) 14 U/L (8-55); AST (SGOT) 12 U/L (5-34); Albumin 4.1 g/dL (3.4-4.8); Alkaline Phosphatase 114 U/L (40-150); Anion Gap 13 mmol/L (10-20); BUN (Urea Nitrogen) 9 mg/dL (9.8-20.1); Bilirubin, Total 0.6 mg/dL (0.2-1.2); CK (CPK) 54 U/L (29-168); Calc. Creatinine Clearance 0 mL/min (70-130); Calcium 9.8 mg/dL (7.8-10.44); Carbon Dioxide 29 mmol/L (23-31); Chloride 104 mmol/L (98-107); Estimated GFR-MDRD Greater than 90; Globulin 2.7 g/dL (2.4-3.5); Glucose 86 mg/dL (80-115); Potassium 4.1 mmol/L (3.5-5.1); Protein, Total 6.8 g/dL (6.0-8.3); Sodium 142 mmol/L (136-145)
[2017-07-04 10:18] LABS: Troponin I Less than 0.010 ng/mL (< 0.028)
--- NOTE | 2017-07-04 10:40 | RAD ---
CHEST ONE VIEW: History: Dyspnea. Comparison: 05-22-17 FINDINGS: Cardiac silhouette is magnified by projection. Pulmonary vasculature is unremarkable. Lungs remain hy perinflated with scattered areas of scarring and interstitial prominence. Mediastinum is midline. The re is no lobar consolidation or evidence of pneumothorax. clinical research monitor leads overlie the chest. IMPRESSION: COPD. POS: [facility]
[2017-07-04] MEDS ORDERED: cefTRIAXone\\ROCEPHIN 1 GM, Syringe 0.4 ML in Sterile Water 9.6 ML SLOW IVP SCH (10:45)
[2017-07-04 12:12] VITALS: BMI 33.9
[2017-07-04] MEDS ORDERED: Ondansetron HCl/PF 4 MG/2 ML Vial IVP PRN ×2 (12:17→12:47)
[2017-07-04] MEDS ORDERED: Acetaminophen 325 MG TAB PO PRN ×2 (12:17→12:47)
[2017-07-04] MEDS ORDERED: Ondansetron ODT 4 MG TAB SL PRN (12:17)
[2017-07-04] MEDS ORDERED: Zolpidem Tartrate 5 MG TAB PO PRN (12:47)
[2017-07-04] MEDS ORDERED: PROVENTIL INHALER 6.7 G (200 INHALATIONS) INH PRN (12:47)
--- NOTE | 2017-07-04 13:36 | HP ---
PRIMARY CARE PROVIDER: Kim Post NP Referred to the [facility] by [facility]. Referred for acute exacerbation of chronic obstructive pulmonary disease. HISTORY OF PRESENT ILLNESS: The patient with a history of COPD on home O2. She stated she has been short of breath for 3 days, could not walk to the bathroom. She has had cough productive of thick ph legm. No fever, no sweats, no chills. Her only other complaint is that her eyes burn. PAST MEDICAL HISTORY: COPD, coronary artery disease, post PCI 4 years ago, hypertension, dyslipidemi a, peripheral arterial disease, thrombocytosis. CURRENT MEDICATIONS: Hydroxyurea 500 mg twice a day, Lasix 20 mg a day, Pepcid 20 mg twice a day, di goxin 0.125 mg a day, Lipitor 40 mg a day, aspirin 81 mg a day, albuterol 2 puffs q.6 hours p.r.n., C oenzyme Q10 100 mg a day, ramipril 5 mg a day, Singulair 10 mg a day, Dulera 200/5 two puffs b.i.d., metoprolol 25 mg p.o. b.i.d., tizanidine 4 mg t.i.d. p.r.n., DuoNeb nebulizer, she says she takes it 2-3 times a day when she is bad. ALLERGIES: Allergic to MORPHINE and VANCOMYCIN. PAST SURGICAL HISTORY: Tubal ligation, tonsillectomy, pneumothorax in 1974, requiring a chest tube. FAMILY HISTORY: Mother from esophageal CA, father from coronary artery disease. SOCIAL HISTORY: , full code status. is surrogate decision maker. She quit smoking a pproximately 8 years ago, drinks no alcohol. REVIEW OF SYSTEMS: General: She has mild dizziness with coughing, no headache or fainting. Eyes: No double vision, blurred vision, or flashing lights. Ears, Nose and Throat: No ear pain or drainag e. No nodes or bleeding. No trouble swallowing. Cardiac: No chest pain, orthopnea or paroxysmal nocturnal dyspnea. Respirations: See present illness. She has cough, wheezing. Gastrointestinal: She states she had a little diarrhea one day ago, it is not a chronic problem. No melena, no abdomi nal pain, nausea or vomiting. Genitourinary: No hematuria or dysuria. Musculoskeletal: She states her legs swell chronically. She has minimal aches and pains. Neurologic: No strokes, seizures or focal weakness. Psychiatric: No history of anxiety or depression. Skin: No bruising, bleeding or rash. Heme/Lymph: No tender or swollen lymph nodes in axilla, inguinal, or cervical area. PHYSICAL EXAMINATION: GENERAL: She is alert, oriented. VITAL SIGNS: Blood pressure 144/74, O2 sat 98 on 2 liters, respirations 18, pulse 84, temperature 98 .0. HEAD, EYES, EARS, NOSE AND THROAT: Reveal pupils equal and round. Extraocular movements are intact. Sclerae white. Tympanic membranes clear. Nose clear. Oral mucous membranes are wet. Dental hygi yamel is good. NECK: Supple, without jugular venous distention, adenopathy or thyromegaly. CHEST: Hyperresonant with markedly decreased breath sounds with no wheezing, rhonchi or rales that w ere all double. HEART: Regular rate and rhythm. First and second heart sounds are clear. There are no appreciated murmurs or gallops. ABDOMEN: Soft, bowel sounds are normal. There is no hepatosplenomegaly, no mass, no rebound. EXTREMITIES: Reveal 2+ edema with no cyanosis or clubbing. PULSES: Carotid and radial pulses intact. Pedal pulses diminished symmetrically. Pedal pulses dimi nished symmetrically. SKIN: Warm and dry without bruises or rash. HEME/LYMPH: No tender or swollen lymph nodes in axilla, inguinal, or cervical area. NEUROLOGICAL: Cranial nerves II-XII are intact. Moves all extremities. Sensation is intact. LABORATORY AND X-RAY FINDINGS: Chest x-ray reviewed by me, marked COPD with marked hyperinflation, n o cardiomegaly. EKG normal sinus rhythm, minimal ST depression, reviewed by me. PH 7.41, CO2 46.1, O2 92.4 on 2 liters by nasal cannula. Comp metabolic profile was essentially normal. Lactic acid 1. 9. D-dimer is normal. CBC shows elevated platelet count, otherwise unremarkable. ADMITTING DIAGNOSES: Exacerbation of chronic obstructive pulmonary disease, who looks good after kirstin roids and nebulizers. No obvious wheezing at this time. Thrombocytopenia, on hydroxyurea;, coronary artery disease, hypertension, dyslipidemia. PLAN: Continue home medications, nebulizers with DuoNeb 3 mL q.4 hours. Oral prednisone 40 mg a day. Continue O2 2 liters by nasal cannula. ASSESSMENT: I think this lady will probably be able to go home tomorrow on oral steroids at an incre ased frequency of nebulizer therapy over her usual 2-3 times a day when she is in trouble. Instructi ons need to be given on how to use it on a more frequent basis.
[2017-07-04] MEDS: Azithromycin 500 MG in Sodium Chloride 0.9% 250 ML 250 ML IVPB SCH (16:15)
[2017-07-04] MEDS ORDERED: Furosemide 20 MG TAB PO SCH (18:15)
[2017-07-04] MEDS: Mometasone/Formoterol 120 PUFF INHALER INH SCH (19:08)
[2017-07-04] MEDS: Famotidine 20 MG TAB PO SCH (20:39)
[2017-07-04] MEDS: Hydroxyurea 500 MG CAP PO SCH ×2 (20:39→20:43)
[2017-07-04] MEDS: Atorvastatin Calcium 40 MG TAB PO SCH (20:40)
[2017-07-04] MEDS: Metoprolol Tartrate 25 MG TAB PO SCH (20:40)
[2017-07-04] MEDS: TIZANIDINE PO PRN (20:42)
[2017-07-05 04:42] LABS: Anion Gap 11 mmol/L (10-20); BUN (Urea Nitrogen) 12 mg/dL (9.8-20.1); Calc. Creatinine Clearance 139 mL/min (70-130); Calcium 8.9 mg/dL (7.8-10.44); Carbon Dioxide 28 mmol/L (23-31); Chloride 105 mmol/L (98-107); Estimated GFR-MDRD Greater than 90; Glucose 138 mg/dL (80-115); Potassium 3.8 mmol/L (3.5-5.1); Sodium 140 mmol/L (136-145)
[2017-07-05 04:49] LABS: #Lymphocytes 1.1 thou/uL (1.20-3.40); #Monocytes 0.6 thou/uL (0.11-0.59); #Neutrophils 6.5 thou/uL (1.40-6.50); %Eosinophils 0.3 % (0.0-10.0); %Lymphocytes 12.9 % (21.0-51.0); %Neutrophils 79.8 % (42.0-75.0); Hemoglobin 11.6 g/dL (12.0-16.0); Mean Corpuscular HGB CONC 31.7 g/dL (32.0-36.0); Mean Corpuscular Hemoglobin 28.6 pg (27.0-31.0); Mean Corpuscular Volume 90.4 fl (81.0-99.0); Mean Platelet Volume 6.3 fL (7.4-10.4); Platelet Count 619 thou/uL (130-400); RBC Distribution Width 16.8 % (11.5-14.5); Red Blood Cell (RBC) Count 4.06 mill/uL (4.20-5.40); White Blood Cell (WBC) Count 8.2 thou/uL (4.8-10.8)
[2017-07-05] MEDS: Hydroxyurea 500 MG CAP PO SCH (06:14)
[2017-07-05] MEDS: Mometasone/Formoterol 120 PUFF INHALER INH SCH ×2 (08:30→19:24)
[2017-07-05] MEDS: predniSONE 20 MG TAB PO SCH (09:03)
[2017-07-05] MEDS: Aspirin 81 mg Enteric Coated Tablet PO SCH (09:03)
[2017-07-05] MEDS: Metoprolol Tartrate 25 MG TAB PO SCH ×2 (09:03→20:01)
[2017-07-05] MEDS: Furosemide 20 MG TAB PO SCH (09:03)
[2017-07-05] MEDS: Famotidine 20 MG TAB PO SCH ×2 (09:03→20:00)
[2017-07-05] MEDS: Ramipril 5 MG CAP PO SCH (09:03)
[2017-07-05] MEDS: Digoxin 0.125 MG TAB PO SCH (09:03)
[2017-07-05] MEDS: Ubidecarenone 50 MG CAP PO SCH (09:04)
[2017-07-05] MEDS: Enoxaparin Sodium 40 MG/0.4 ML SYRINGE SC SCH (09:04)
[2017-07-05] MEDS: Montelukast Sodium 10 mg Tablet PO SCH (09:04)
[2017-07-05] MEDS ORDERED: Hydroxyurea 500 MG CAP PO SCH (12:00)
--- NOTE | 2017-07-05 12:18 | EKG ---
Test Reason : Blood Pressure : / mmHG Vent. Rate : 079 BPM Atrial Rate : 079 BPM P-R Int : 132 ms QRS Dur : 078 ms QT Int : 328 ms P-R-T Axes : 037 078 054 degrees QTc Int : 376 ms Undetermined rhythm Junctional ST depression, probably normal Borderline ECG Confirmed by LILLIAN VICENTE ([id number]), manager editorial KITTY KABA ([id number]) on 07/05/2017 12:18:24 PM Referred By: Confirmed By:LILLIAN VICENTE
--- NOTE | 2017-07-05 13:52 | PDOC.PN ---
- Subjective Encounter Start Date: 07/05/17 Encounter Start Time: 10:00 Pt seen for followup re: COPD exacerbation. Reports SOBOE. Denies chest pain. No fevers or chills. - Objective Resuscitation Status: Resuscitation Status FULL:Full Resuscitation MAR Reviewed: Yes Vital Signs & Weight: Vital Signs (12 hours) Temp Pulse Resp BP Pulse Ox 07/05/17 12:30 97.9 F 82 24 H 191/78 H 95 07/05/17 10:53 80 18 07/05/17 09:03 79 07/05/17 08:30 79 18 97 07/05/17 08:28 79 18 97 07/05/17 07:45 97.9 F 82 24 H 07/05/17 07:39 97.5 F L 70 24 H 175/74 H 98 07/05/17 04:10 97.4 F L 80 20 126/60 96 07/05/17 02:09 84 16 Weight Weight 197 lb 12.8 oz I&O: 07/04/17 07/05/17 07/06/17 06:59 06:59 06:59 Intake Total 720 760 Output Total 1100 Balance -380 760 Result Diagrams: 07/05/17 04:10 07/05/17 04:10 Phys Exam - Physical Examination Constitutional: NAD HEENT: moist MMs Neck: supple Diminished air entry luca, wheezing upper lung zones Cardiovascular: RRR Gastrointestinal: soft Musculoskeletal: pulses present Neurological: moves all 4 limbs Psychiatric: normal affect Skin: no rash Dx/Plan (1) COPD exacerbation Code(s): J44.1 - CHRONIC OBSTRUCTIVE PULMONARY DISEASE W (ACUTE) EXACERBATION Status: Acute (2) Acute on chronic respiratory failure with hypoxemia Code(s): J96.21 - ACUTE AND CHRONIC RESPIRATORY FAILURE WITH HYPOXIA Status: Acute (3) Coronary artery disease Code(s): I25.10 - ATHSCL HEART DISEASE OF [place] CORONARY ARTERY W/O ANG PCTRS Status: Chronic (4) Hypertension Code(s): I10 - ESSENTIAL (PRIMARY) HYPERTENSION Status: Chronic (5) Obesity (BMI 30.0-34.9) Code(s): E66.9 - OBESITY, UNSPECIFIED Status: Chronic - Plan PT/OT, out of bed/ambulate * . Continue oxygen, steroids, antibiotics and bronchodilators. Still significantly short of breath. CAD stable. Review of Systems - Review of Systems Constitutional: negative: fever, chills, sweats, weakness, malaise Respiratory: Cough, Shortness of Breath, SOB with Excertion. negative: Dry, Hemoptysis, Pleuritic Pain, Sputum, Wheezing Cardiovascular: negative: chest pain, palpitations, orthopnea, paroxysmal nocturnal dyspnea, edema, light headedness Gastrointestinal: negative: Nausea, Vomiting, Abdominal Pain, Diarrhea, Constipation, Melena, Hematochezia Genitourinary: negative: Dysuria, Frequency, Incontinence, Hematuria, Retention - Medications/Allergies Allergies/Adverse Reactions: Allergies Allergy/AdvReac Type Severity Reaction Status Date / Time adhesive Allergy Verified 12/06/12 09:46 morphine Allergy Verified 05/22/17 17:56 vancomycin Allergy Verified 05/22/17 17:56 Medications: Current Medications Acetaminophen (Tylenol) 650 mg PO Q4H PRN PRN Reason: Headache/Fever or Pain Albuterol Sulfate (Proventil Hfa) 2 puff INH Q6H PRN PRN Reason: SOB &/or Wheezing Albuterol/Ipratropium (Duoneb) 3 ml NEB [id number] [facility] Last Admin: 07/05/17 10:53 Dose: 3 ml Aspirin (Ecotrin) 81 mg PO DAILY [facility] Last Admin: 07/05/17 09:03 Dose: 81 mg Atorvastatin Calcium (Lipitor) 40 mg PO HS [facility] Last Admin: 07/04/17 20:40 Dose: 40 mg Coenzyme Q10 (Coenzyme Q10) 100 mg PO DAILY [facility] Last Admin: 07/05/17 09:04 Dose: 100 mg Digoxin (Lanoxin) 0.125 mg PO QAM [facility] Last Admin: 07/05/17 09:03 Dose: 0.125 mg Enoxaparin Sodium (Lovenox) 40 mg SC 0900 [facility] Last Admin: 07/05/17 09:04 Dose: 40 mg Famotidine (Pepcid) 20 mg PO BID [facility] Last Admin: 07/05/17 09:03 Dose: 20 mg Furosemide (Lasix) 20 mg PO DAILY [facility] Last Admin: 07/05/17 09:03 Dose: 20 mg Hydroxyurea (Hydrea) 1,000 mg PO 0900 [facility] Azithromycin 500 mg/ Sodium (Chloride) 250 mls @ 250 mls/hr IVPB 1400 [facility] Last Admin: 07/04/17 16:15 Dose: 250 mls Metoprolol Tartrate (Lopressor) 25 mg PO BID [facility] Last Admin: 07/05/17 09:03 Dose: 25 mg Mometasone Furoate/Formoterol Fumar (Dulera 200 Mcg/5 Mcg Inhaler) 2 puff INH BID-RT [facility] Last Admin: 07/05/17 08:30 Dose: 2 puff Montelukast Sodium (Singulair) 10 mg PO DAILY [facility] Last Admin: 07/05/17 09:04 Dose: 10 mg Ondansetron HCl (Zofran) 4 mg IVP Q6H PRN PRN Reason: Nausea/Vomiting Prednisone (Prednisone) 40 mg PO 0800 [facility] Last Admin: 07/05/17 09:03 Dose: 40 mg Ramipril (Altace) 5 mg PO DAILY [facility] Last Admin: 07/05/17 09:03 Dose: 5 mg Tizanidine HCl (Zanaflex) 4 mg PO TID PRN PRN Reason: Pain Last Admin: 07/04/17 20:42 Dose: 4 mg Zolpidem Tartrate (Ambien) 5 mg PO HSPRN PRN PRN Reason: Insomnia
[2017-07-05] MEDS: Azithromycin 500 MG in Sodium Chloride 0.9% 250 ML 250 ML IVPB SCH (15:50)
[2017-07-05] MEDS: Atorvastatin Calcium 40 MG TAB PO SCH (20:00)
[2017-07-05] MEDS: TIZANIDINE PO PRN (20:02)
[2017-07-06] MEDS: Mometasone/Formoterol 120 PUFF INHALER INH SCH (08:10)
[2017-07-06] MEDS: Aspirin 81 mg Enteric Coated Tablet PO SCH (08:23)
[2017-07-06] MEDS: Metoprolol Tartrate 25 MG TAB PO SCH (08:23)
[2017-07-06] MEDS: predniSONE 20 MG TAB PO SCH (08:23)
[2017-07-06] MEDS: Montelukast Sodium 10 mg Tablet PO SCH (08:24)
[2017-07-06] MEDS: Digoxin 0.125 MG TAB PO SCH (08:24)
[2017-07-06] MEDS: Ramipril 5 MG CAP PO SCH (08:24)
[2017-07-06] MEDS: Furosemide 20 MG TAB PO SCH (08:24)
[2017-07-06] MEDS: Ubidecarenone 50 MG CAP PO SCH (08:24)
[2017-07-06] MEDS: Famotidine 20 MG TAB PO SCH (08:24)
[2017-07-06] MEDS: Enoxaparin Sodium 40 MG/0.4 ML SYRINGE SC SCH (08:25)
[2017-07-06] MEDS ORDERED: Hydroxyurea 500 MG CAP PO SCH (09:00)
[2017-07-06] MEDS: Azithromycin 500 MG in Sodium Chloride 0.9% 250 ML 250 ML IVPB SCH (13:46)
[2017-07-06 15:55] VITALS: BP 171/72; TEMP 98
--- NOTE | 2017-07-06 16:38 | DIS ---
DATE OF ADMISSION: 07/04/2017 DATE OF DISCHARGE: 07/06/2017 PRIMARY CARE PROVIDER: Dr. Kim Post. DISCHARGE DIAGNOSES: 1. Acute on chronic respiratory failure with hypoxemia secondary to #2. 2. Chronic obstructive pulmonary disease exacerbation. CONDITION OF PATIENT ON THE DAY OF DISCHARGE: Stable. I assessed Ms. Aguilar on the day of discharge. She denies any chest pain. Shortness of breath is better. PHYSICAL EXAMINATION: VITAL SIGNS: Stable. HEART: S1 and S2 are heard, regular. LUNGS: Clear to auscultation bilaterally. DISCHARGE MEDICATIONS: Proventil HFA 2 puffs every 6 hours as needed, aspirin 81 mg daily, atorvasta tin 40 mg at bedtime, azithromycin 250 mg daily for 4 days, digoxin 0.125 mg daily, Pepcid 20 mg 2 ti mes a day, Lasix 20 mg daily, hydroxyurea 500 mg 2 times a day, Lopressor 25 mg 2 times a day, Dulera inhaler 2 puffs 2 times a day, Singulair 10 mg daily, prednisone on a tapering dose, ramipril 5 mg d aily, tizanidine 4 mg 3 times a day as needed, and Coenzyme Q10 100 mg daily. HOSPITAL COURSE: Ms. Aguilar is a pleasant 62-year-old lady, who was admitted to [facility] on 07/04/2017 for acute on chronic hypoxic respiratory failure secondary to chronic obstru ctive pulmonary disease exacerbation. She was treated with oxygen, steroids, bronchodilators and ant ibiotics. She improved clinically, and is being discharged home in a stable condition. On 07/05/2017, she had a white count of 8200, hemoglobin 11.6, platelet count 619,000, normal electro lytes and creatinine 0.58. She had normal liver profile during this hospitalization. Many thanks for allowing me to participate in your patient's care. Please feel free to contact me wi th any questions or concerns. DISCHARGE DESTINATION: Home.
== END 2017-07-06 17:14 | disposition home or self-care (01) ==
LOC: ERS 09:29 → 2SW 11:40
PROVIDERS: ADMIT Internal Medicine; ATTEND Internal Medicine
DX: J44.1 Chronic obstructive pulmonary disease with (acute) exacerbation (principal); J96.21 Acute and chronic respiratory failure with hypoxia; I25.2 Old myocardial infarction; I25.10 Atherosclerotic heart disease of native coronary artery without angina pectoris; I73.9 Peripheral vascular disease, unspecified; E78.5 Hyperlipidemia, unspecified; Z88.5 Allergy status to narcotic agent; Z88.1 Allergy status to other antibiotic agents; Z88.8 Allergy status to other drugs, medicaments and biological substances; Z87.891 Personal history of nicotine dependence; Z80.8 Family history of malignant neoplasm of other organs or systems; Z79.52 Long term (current) use of systemic steroids; Z79.82 Long term (current) use of aspirin; Z79.899 Other long term (current) drug therapy; Z98.61 Coronary angioplasty status; Z98.51 Tubal ligation status; Z98.890 Other specified postprocedural states
CPT/HCPCS: 36415; 71010; 80048; 80053; 82553; 82805; 83605; 84484; 85025; 85379; 87045; 87046; 87324; 87449; 87899; 93005; 94640; 94760; 96365; 96366; 96372; 96374; 96375; A4216; G0378; J0456; J0696; J1650; J2930; J7050; J7506; J7620

== ENCOUNTER 2017-07-10 13:05 | Inpatient (IN) | payer OTHER, SELFPAY ==
--- NOTE | 2017-07-10 14:23 | RAD ---
PORTABLE CHEST ONE VIEW: Date: 07-10-17 Time: 2:16 p.m. History: Cough. FINDINGS: Comparison is made with the exam of 07-04-17. The heart size is normal. The lungs are expanded without focal areas of consolidation, pneumothorax, or pleural effusions. IMPRESSION: No radiographic evidence of acute cardiopulmonary process. POS: [facility]
[2017-07-10 14:32] LABS: CKMB 1.6 ng/mL (0-6.6); Troponin I Less than 0.010 ng/mL (< 0.028)
[2017-07-10] MEDS ORDERED: methylPREDNISolone Sod Succ/PF 125 MG/2 ML VIAL ONE (14:59)
[2017-07-10] MEDS ORDERED: Water For Inject, Bacteriostat 30 ML ONE (15:15)
[2017-07-10 15:52] LABS: #Basophils 0.1 thou/uL (0.0-0.2); #Monocytes 0.4 thou/uL (0.11-0.59); #Neutrophils 10.9 thou/uL (1.40-6.50); %Basophils 0.5 % (0.0-1.0); %Eosinophils 0.3 % (0.0-10.0); %Lymphocytes 7.7 % (21.0-51.0); %Monocytes 2.9 % (0.0-10.0); %Neutrophils 88.6 % (42.0-75.0); Hemoglobin 13.8 g/dL (12.0-16.0); Mean Corpuscular HGB CONC 32.1 g/dL (32.0-36.0); Mean Corpuscular Hemoglobin 29.1 pg (27.0-31.0); Mean Corpuscular Volume 90.7 fl (81.0-99.0); Mean Platelet Volume 6.5 fL (7.4-10.4); Platelet Count 718 thou/uL (130-400); RBC Distribution Width 17.7 % (11.5-14.5); Red Blood Cell (RBC) Count 4.72 mill/uL (4.20-5.40); White Blood Cell (WBC) Count 12.3 thou/uL (4.8-10.8)
[2017-07-10 16:00] LABS: Albumin 4.2 g/dL (3.4-4.8)
[2017-07-10 16:01] LABS: Chloride 100 mmol/L (98-107); Potassium 4.3 mmol/L (3.5-5.1); Sodium 138 mmol/L (136-145)
[2017-07-10 16:02] LABS: Calcium 9.7 mg/dL (7.8-10.44)
[2017-07-10 16:03] LABS: Globulin 2.5 g/dL (2.4-3.5); Glucose 122 mg/dL (80-115); Protein, Total 6.7 g/dL (6.0-8.3)
[2017-07-10 16:04] LABS: Anion Gap 14 mmol/L (10-20); Bilirubin, Total 1.3 mg/dL (0.2-1.2); Carbon Dioxide 28 mmol/L (23-31)
[2017-07-10 16:05] LABS: Alkaline Phosphatase 102 U/L (40-150)
[2017-07-10 16:06] LABS: Calc. Creatinine Clearance 0 mL/min (70-130); Estimated GFR-MDRD 84
[2017-07-10 16:07] LABS: BUN (Urea Nitrogen) 14 mg/dL (9.8-20.1)
[2017-07-10 16:08] LABS: ALT (SGPT) 22 U/L (8-55); AST (SGOT) 12 U/L (5-34); CK (CPK) 50 U/L (29-168)
--- NOTE | 2017-07-10 17:47 | HP ---
PRIMARY CARE PHYSICIAN: Kim Post NP CHIEF COMPLAINT: Worsening shortness of breath. HISTORY OF PRESENT ILLNESS: This is a 62-year-old obese white female with a past medical history of COPD for 8 years, this has been progressive over the last year and she was admitted 2 months ago with COPD exacerbation and also had some problems with her heart failure and atrial fibrillation at that time. She was given home oxygen before discharge. She has had continued shortness breath and cough at home and then that acutely worsened at the end of last month and she was seen 6 days ago for COPD exacerbation. She was put in observation and was given IV steroids and antibiotics, and was doing be tter and was discharged 4 days ago with a steroid taper with azithromycin and home nebs q.4 hours. Th e patient reports that she felt like she was getting better first; however, she has gotten significan tly worse over the last 4 days and now is continuously short of breath, cough productive of increasin g amounts of yellow sputum and chest tightness. She has very little energy and can barely get back a nd forth to the bathroom with assistance from people in the house and so she presented back to the em ergency room. The patient had titrated down from 40 mg now on to the 20 mg a day prednisone and has finished her azithromycin. PAST MEDICAL HISTORY: 1. COPD, on home oxygen. 2. Coronary artery disease, status post stents. 3. Atrial fibrillation. 4. Hypercholesterolemia. 5. Peripheral artery disease. 6. 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 PAST SURGICAL HISTORY: 1. Tubal ligation. 2. Tonsillectomy. 3. Spontaneous pneumothorax in 1974, requiring chest tube. 4. PCI 4 years ago. FAMILY HISTORY: Mother from esophageal cancer. Father from coronary artery disease. SOCIAL HISTORY: The patient is . She quit smoking in early 2009. No alcohol or illicit drug use. ALLERGIES: 1. TAPE ADHESIVES. 2. MORPHINE. 3. VANCOMYCIN. MEDICATIONS: 1. Albuterol nebs q.4 hours. 2. Aspirin 81 mg daily. 3. Atorvastatin 40 mg at night. 4. Digoxin 0.125 mg daily. 5. Pepcid 20 mg twice a day. 6. Furosemide 20 mg daily. 7. Hydroxyurea 500 mg twice a day. 8. Metoprolol tartrate 25 mg twice a day. 9. Dulera 200/5 mcg inhaler 2 puffs twice a day. 10. Singular 10 mg daily. 11. Prednisone currently 20 mg daily. 12. Ramipril 5 mg daily. 13. Tizanidine 4 mg 3 times a day as needed for muscle spasms. 14. Coenzyme Q10 100 mg daily. REVIEW OF SYSTEMS: CONSTITUTIONAL: No fevers, no chills. EYES: No double vision or blurred vision. ENT: No congestion, drainage or sore throat. CARDIOVASCULAR: No chest pain, no palpitations or racing heart. PULMONARY: See HPI. GASTROINTESTINAL: No abdominal pain, no nausea or vomiting. She is a little constipated. No diarrh ea. GENITOURINARY: No dysuria or hematuria. MUSCULOSKELETAL: Chronic muscle aches and joint pains at her baseline. SKIN: No rashes or other lesions. NEUROLOGIC: No numbness, tingling or focal weakness. PHYSICAL EXAMINATION: VITAL SIGNS: Blood pressure 149/69, pulse 84, respirations initially 26 per minute before nebs, now down to 23 per minute, O2 sat 98% on 3 liters, temperature 98.1. GENERAL: This is a well-developed, obese white female in mild respiratory distress with severely pro longed expiratory phase. She is speaking in 2-3 word sentences and gets visibly short of breath with any sort of exertion or speech. HEENT: Pupils equal, round, and reactive to light. Oropharynx clear without lesions, erythema or ex udate. NECK: Supple, no lymphadenopathy, no thyroid nodules or enlargement. HEART: Regular rate and rhythm. No murmurs, rubs or gallops. LUNGS: Diffuse decreased breath sounds throughout very tight breath sounds with scattered wheezes. No crackles or rhonchi. She does have increased respiratory effort. Increased accessory muscle use and severely prolonged expiratory phase. GASTROINTESTINAL: Soft, nontender to palpation, normoactive bowel sounds. No hepatosplenomegaly or other masses. EXTREMITIES: No clubbing, cyanosis or edema. SKIN: No rashes or lesions noted. NEUROLOGIC: She has intact strength in all extremities and has no facial droop. LABORATORY: White blood cell count 12.3, up from 8.2 at her last admission; hemoglobin and hematocri t normal; platelet count is 718, down from 900 was high last month. Complete metabolic panel notable only for a glucose of 122. Total bilirubin of 1.3. The remainder is normal. IMAGING: I did review the chest x-ray done in the emergency room along with the radiologist's report . The patient has persistent fibrotic sort of appearing changes in her lungs, but no infiltrate, no acute changes to previous films. ASSESSMENT AND PLAN: 1. Severe chronic obstructive pulmonary disease with exacerbation, failed outpatient steroid taper a fter observation in the hospital earlier in the week. We will admit the patient to the hospital for IV steroids and nebulizers. She has already finished one course of antibiotics. We will hold off an y further antibiotics at this time. I will consult Dr. Lu on-call for Dr. Vela to evaluate the patient. I will continue nebs scheduled along with p.r.n. and continue oxygen. Anticipate the patie nt will need at least a couple of days for the IV steroids to count down information again. She will need a much longer steroid taper. Also concerned that this is actually rather than just being exace rbation is a possibility this is a progression of her chronic obstructive pulmonary disease that will not get significantly better. I have warned her about this possibility. The patient does have a lo t of help at home should this be the case and she need help with ambulation for now on. 2. Coronary artery disease. Resume patient's home medications. 3. History of atrial fibrillation, now per EKG in the ER, she looks like she is back in sinus rhythm . She does not list Coumadin as one of her home medications. I am not certain if she was taken off that or just stopped it. We will get an INR and monitor on the environmental monitoring specialist. 4. Gastrointestinal prophylaxis. Put the patient on Pepcid while she is in the hospital. 5. Deep venous thrombosis prophylaxis. Put the patient on sequential compression devices, TEDs, and if her INR is back to abnormal, we will start her on prophylactic Lovenox. CODE STATUS: I did not discuss with the patient. She is a FULL CODE. Should she be incapacitated, she states that her son would be her medical decision maker, Juan Levine.
[2017-07-10] MEDS ORDERED: Ondansetron HCl/PF 4 MG/2 ML Vial IVP PRN (18:05)
[2017-07-10] MEDS ORDERED: Acetaminophen 650 MG Suppository PR PRN (18:05)
[2017-07-10] MEDS ORDERED: Bisacodyl 5 MG TAB PO PRN (18:05)
[2017-07-10] MEDS ORDERED: Ondansetron ODT 4 MG TAB PO PRN (18:05)
[2017-07-10 18:31] LABS: Prothrombin Time 13.4 SEC (12.0-14.7)
[2017-07-10] MEDS ORDERED: guaiFENesin 100 MG/5 ML UDCUP PO PRN (18:39)
[2017-07-10] MEDS ORDERED: Diabetic Tussin 200 MG/10 ML UDCUP PO PRN (18:42)
[2017-07-10 18:44] VITALS: BMI 34.1
[2017-07-10] MEDS: Docusate 100 MG CAP PO SCH (21:17)
[2017-07-10] MEDS: Famotidine 20 MG TAB PO SCH (21:17)
[2017-07-11 05:25] LABS: Anion Gap 13 mmol/L (10-20); BUN (Urea Nitrogen) 13 mg/dL (9.8-20.1); Calc. Creatinine Clearance 109 mL/min (70-130); Calcium 9.4 mg/dL (7.8-10.44); Carbon Dioxide 28 mmol/L (23-31); Chloride 101 mmol/L (98-107); Estimated GFR-MDRD 79; Glucose 161 mg/dL (80-115); Potassium 4.2 mmol/L (3.5-5.1); Sodium 138 mmol/L (136-145)
[2017-07-11 05:49] LABS: Band 2 % (5-11); Hemoglobin 12.3 g/dL (12.0-16.0); Lymphocytes 12 % (21-51); MDiff Complete? YES; Mean Corpuscular HGB CONC 31.6 g/dL (32.0-36.0); Mean Corpuscular Hemoglobin 29.1 pg (27.0-31.0); Mean Corpuscular Volume 91.9 fl (81.0-99.0); Mean Platelet Volume 6.2 fL (7.4-10.4); Monocytes 4 % (0-10); Neutrophil 81 % (42-75); PLT Morphology Comment Appears Increased; Platelet Count 572 thou/uL (130-400); RBC Distribution Width 17.7 % (11.5-14.5); Reactive Lymphocytes 1 % (0-10); Red Blood Cell (RBC) Count 4.24 mill/uL (4.20-5.40); White Blood Cell (WBC) Count 6.9 thou/uL (4.8-10.8)
--- NOTE | 2017-07-11 07:37 | PDOC.PN ---
- Subjective Encounter Start Date: 07/11/17 Encounter Start Time: 09:00 Subjective: A little better this morning. No fever. No chest pain. Still very SOB, -: dyspneic with any speech or activity. - Objective Resuscitation Status: Resuscitation Status FULL:Full Resuscitation MAR Reviewed: Yes Vital Signs & Weight: Vital Signs (12 hours) Temp Pulse Resp BP Pulse Ox 07/11/17 03:55 97.5 F L 86 24 H 142/85 H 98 07/11/17 00:00 71 16 98 07/10/17 23:38 98.2 F 74 20 130/66 94 L 07/10/17 19:56 97.8 F 81 23 H 98 Weight Weight 191 lb 12.8 oz I&O: 07/10/17 07/11/17 07/12/17 06:59 06:59 06:59 Intake Total 360 Balance 360 Result Diagrams: 07/11/17 04:35 07/11/17 04:35 Phys Exam - Physical Examination Constitutional: NAD HEENT: moist MMs increased WOB, delayed expiratory phase, diffuse wheezing, possibly a little bit improved from yesterday Cardiovascular: RRR Gastrointestinal: soft, positive bowel sounds Neurological: non-focal, moves all 4 limbs Psychiatric: normal affect, A&O x 3 Dx/Plan (1) COPD exacerbation Code(s): J44.1 - CHRONIC OBSTRUCTIVE PULMONARY DISEASE W (ACUTE) EXACERBATION Status: Acute Comment: Nebs, IV steroids, already completed abx course, pulmonology consult (2) Acute on chronic respiratory failure with hypoxemia Code(s): J96.21 - ACUTE AND CHRONIC RESPIRATORY FAILURE WITH HYPOXIA Status: Acute (3) Coronary artery disease Code(s): I25.10 - ATHSCL HEART DISEASE OF [place] CORONARY ARTERY W/O ANG PCTRS Status: Chronic (4) Atrial fibrillation Code(s): I48.91 - UNSPECIFIED ATRIAL FIBRILLATION Status: Chronic Qualifiers: Atrial fibrillation type: paroxysmal Qualified Code(s): I48.0 - Paroxysmal atrial fibrillation Comment: not on Coumadin anymore - Plan cont current plan of care, PT/OT, respiratory therapy, DVT proph w/lovenox, DVT proph w/SCDs * . - Discharge Day Encounter end time: 09:30
[2017-07-11] MEDS: Docusate 100 MG CAP PO SCH ×2 (09:23→23:44)
[2017-07-11] MEDS: Enoxaparin Sodium 40 MG/0.4 ML SYRINGE SC SCH (09:23)
[2017-07-11] MEDS: Famotidine 20 MG TAB PO SCH ×2 (09:24→21:43)
[2017-07-11] MEDS: Acetaminophen 325 MG TAB PO PRN (16:09)
[2017-07-11] MEDS: Mometasone/Formoterol 120 PUFF INHALER INH SCH (19:11)
[2017-07-11] MEDS: Atorvastatin Calcium 40 MG TAB PO SCH (21:43)
[2017-07-11] MEDS: tiZANidine HCl 4 MG TAB PO PRN (21:43)
[2017-07-11] MEDS: Metoprolol Tartrate 25 MG TAB PO SCH (21:43)
--- NOTE | 2017-07-11 23:27 | CON ---
DATE OF CONSULTATION: 07/11/2017 Ms. Flannery is a 62-year-old female. She has a history of obstructive lung disease. She is not real ly seen regularly by any pulmonary physician. She presented with cough, chest congestion, and shortn ess of breath that had been going on for over a week. He is only improving slowly, so we were consul felipe. She has had colored sputum and chest tightness. She finally says she started to turning the corner a nd think she is feeling a little better. She denies fever. She denies chest pain. She denies ortho pnea or paroxysmal nocturnal dyspnea. PAST MEDICAL HISTORY: 1. Remarkable for COPD. 2. Coronary artery disease. 3. History of coronary stenting. 4. History of atrial fibrillation. 5. History of a lipid disorder. 6. History of peripheral vascular disease. 7. History of essential thrombocytosis. 8. History of tubal ligation. 9. History of tonsillectomy. 10. History of pneumothorax 40 years ago requiring chest tube placement. 11. History of her stenting. FAMILY HISTORY: Positive for cancer and vascular disease. SOCIAL HISTORY: She is a nonsmoker, nondrinker. She has a history of smoking. She has no history o f drug use. REVIEW OF SYSTEMS: Otherwise negative except for what was described in the HPI. She denies hemoptys is or weight loss leading up to this illness. ALLERGIES: She reports allergies to ADHESIVES, MORPHINE and VANCOMYCIN. It is unclear whether or no t she had red man syndrome with vancomycin and is truly allergic. MEDICATIONS: Prior to admission, she is on nebulizer treatments at home, aspirin, atorvastatin, digo vanessa, Pepcid, Lasix, Hydrea, metoprolol, Dulera, Singulair, prednisone on admission at 20 mg a day, ra mipril, tizanidine, and Coenzyme Q10. PHYSICAL EXAMINATION: GENERAL: She is comfortable at rest. She is talking in complete sentences. She is not using access ory muscles. VITAL SIGNS: She is afebrile when seen this morning, her heart rate was 96, respiratory rate was 16, oximetry was 98 on 2 liters, blood pressure 130/78. HEENT: Pupils are equal. Sclerae is anicteric. NECK: Supple. She has no cervical lymphadenopathy. LUNGS: Remarkable for distant breath sounds. She does not have a prolonged expiratory phase. She i s not audibly wheezing. HEART: Regular rhythm, no S3, no gallop. ABDOMEN: Soft and nontender. EXTREMITIES: Without asymmetry. LABORATORY DATA: White count 6.9, hemoglobin 12.3, platelets 572. Sodium is 138, potassium 4.2, chloride 101, bicarb 28, BUN 13, creatinine 0.7. Coag studies were nor mal on presentation. IMPRESSION: Chronic obstructive pulmonary disease exacerbation. I reviewed her chest radiograph. I do not see any alveolar infiltrate suggestive of pneumonia. She does have hyperinflated lungs. We will continue with current therapy to include steroids, antimicrobial therapy, nebulizer treatment s, steroid dosing can be decreased. She probably needs to be on p.o. antimicrobial therapy. This is a 50-minute consult of which 50% of the time was spent reviewing records and reviewing the pa tient, reviewing lab work, reviewing radiographs, and coordinating care with the staff on the unit.
[2017-07-12] MEDS: Mometasone/Formoterol 120 PUFF INHALER INH SCH ×2 (08:46→18:24)
[2017-07-12] MEDS: Ramipril 5 MG CAP PO SCH (09:39)
[2017-07-12] MEDS: Metoprolol Tartrate 25 MG TAB PO SCH ×2 (09:39→21:27)
[2017-07-12] MEDS: Hydroxyurea 500 MG CAP PO SCH ×2 (09:39→11:36)
[2017-07-12] MEDS: Enoxaparin Sodium 40 MG/0.4 ML SYRINGE SC SCH (09:39)
[2017-07-12] MEDS: Aspirin 81 mg Enteric Coated Tablet PO SCH (09:39)
[2017-07-12] MEDS: Digoxin 0.125 MG TAB PO SCH (09:40)
[2017-07-12] MEDS: Famotidine 20 MG TAB PO SCH ×2 (09:40→21:26)
[2017-07-12] MEDS: Montelukast Sodium 10 mg Tablet PO SCH (09:40)
[2017-07-12] MEDS: Furosemide 20 MG TAB PO SCH (09:40)
[2017-07-12] MEDS: Docusate 100 MG CAP PO SCH ×2 (09:41→21:25)
[2017-07-12] MEDS: Ubidecarenone 50 MG CAP PO SCH (11:36)
--- NOTE | 2017-07-12 12:23 | PRG ---
DATE OF SERVICE: 07/12/2017 SUBJECTIVE: Alma Delia Aguilar says she is feeling better. She is in no distress. OBJECTIVE: VITAL SIGNS: She is afebrile. Heart rate in the 90s, blood pressure 144/75, respiratory rate is 20 and oximetry is 95% on 2 liters. LUNGS: Remarkable for distant breath sounds. She still has some faint wheezes. HEART: Regular rhythm. ABDOMEN: Soft. LABORATORY DATA: No new lab today. IMPRESSION: Chronic obstructive pulmonary disease exacerbation, slowly improving, likely triggered b y viral illness. PLAN: Continue current care. I do not think she is ready for discharge if she does not either.
[2017-07-12] MEDS: Acetaminophen 325 MG TAB PO PRN (18:41)
[2017-07-12] MEDS: tiZANidine HCl 4 MG TAB PO PRN (21:27)
[2017-07-12] MEDS: Atorvastatin Calcium 40 MG TAB PO SCH (21:27)
--- NOTE | 2017-07-12 21:48 | PDOC.PN ---
- Subjective Encounter Start Date: 07/12/17 Encounter Start Time: 17:00 Patient seen and examined. SOB on minimal exertion. No overnight events - Objective Resuscitation Status: Resuscitation Status FULL:Full Resuscitation MAR Reviewed: Yes Vital Signs & Weight: Vital Signs (12 hours) Temp Pulse Resp BP Pulse Ox 07/12/17 20:00 97.4 F L 84 16 154/70 H 97 07/12/17 18:24 90 20 07/12/17 18:23 90 20 98 07/12/17 15:57 98.2 F 107 H 20 147/68 H 96 07/12/17 15:34 80 24 H 07/12/17 11:58 97.5 F L 85 20 142/85 H 97 Weight Weight 195 lb 3.2 oz I&O: 07/11/17 07/12/17 07/13/17 06:59 06:59 06:59 Intake Total 360 1270 1030 Balance 360 1270 1030 Result Diagrams: 07/13/17 04:26 07/13/17 04:26 EKG Reviewed by me: Yes (Tele SR) Phys Exam - Physical Examination Constitutional: NAD Respiratory: no rales, no rhonchi Scat wheezing + Cardiovascular: RRR, no rub Gastrointestinal: soft, non-tender, positive bowel sounds Musculoskeletal: no edema Neurological: moves all 4 limbs Dx/Plan - Plan DVT proph w/lovenox, DVT proph w/SCDs IMPRESSION: 1. COPD Exacerbation - slowly improving 2. Chronic resp failure on home O2 - 2 lit 3. HLD 4. CAD 5. Other issues per H&P PLAN: * Cont IV Steroids/Nebs/O2 * Pulm following * AM labs * Cont to monitor * DC in 1-2 days if stable Review of Systems - Review of Systems Cardiovascular: negative: chest pain, palpitations, orthopnea, paroxysmal nocturnal dyspnea, edema, light headedness Gastrointestinal: negative: Nausea, Vomiting, Abdominal Pain, Diarrhea, Constipation, Melena, Hematochezia - Medications/Allergies Allergies/Adverse Reactions: Allergies Allergy/AdvReac Type Severity Reaction Status Date / Time adhesive Allergy Verified 12/06/12 09:46 morphine Allergy Verified 05/22/17 17:56 vancomycin Allergy Verified 05/22/17 17:56 Medications: Current Medications Acetaminophen (Tylenol) 650 mg PO Q4H PRN PRN Reason: Headache/Fever or Pain Last Admin: 07/12/17 18:41 Dose: 650 mg Acetaminophen (Tylenol) 650 mg NE Q4H PRN PRN Reason: Headache/Fever or Pain Albuterol/Ipratropium (Duoneb) 3 ml NEB Q4H PRN PRN Reason: SOB &/or Wheezing Albuterol/Ipratropium (Duoneb) 3 ml NEB [id number] [facility] Last Admin: 07/12/17 18:23 Dose: 3 ml Aspirin (Ecotrin) 81 mg PO DAILY [facility] Last Admin: 07/12/17 09:39 Dose: 81 mg Atorvastatin Calcium (Lipitor) 40 mg PO HS [facility] Last Admin: 07/12/17 21:27 Dose: 40 mg Bisacodyl (Dulcolax) 10 mg PO DAILYPRN PRN PRN Reason: Constipation Coenzyme Q10 (Coenzyme Q10) 100 mg PO DAILY [facility] Last Admin: 07/12/17 11:36 Dose: 100 mg Digoxin (Lanoxin) 0.125 mg PO QAM [facility] Last Admin: 07/12/17 09:40 Dose: 0.125 mg Docusate Sodium (Colace) 100 mg PO BID [facility] Last Admin: 07/12/17 21:25 Dose: Not Given Enoxaparin Sodium (Lovenox) 40 mg SC 0900 [facility] Last Admin: 07/12/17 09:39 Dose: 40 mg Famotidine (Pepcid) 20 mg PO BID [facility] Last Admin: 07/12/17 21:26 Dose: 20 mg Furosemide (Lasix) 20 mg PO DAILY [facility] Last Admin: 07/12/17 09:40 Dose: 20 mg Guaifenesin (Robitussin Sf) 200 mg PO Q4H PRN PRN Reason: Cough Hydroxyurea (Hydrea) 500 mg PO 0900,1200 [facility] Last Admin: 07/12/17 11:36 Dose: 500 mg Methylprednisolone Sodium Succinate (Solu-Medrol) 40 mg IVP Q6HR [facility] Last Admin: 07/12/17 18:41 Dose: 40 mg Metoprolol Tartrate (Lopressor) 25 mg PO BID [facility] Last Admin: 07/12/17 21:27 Dose: 25 mg Mometasone Furoate/Formoterol Fumar (Dulera 200 Mcg/5 Mcg Inhaler) 2 puff INH BID-RT [facility] Last Admin: 07/12/17 18:24 Dose: 2 puff Montelukast Sodium (Singulair) 10 mg PO DAILY [facility] Last Admin: 07/12/17 09:40 Dose: 10 mg Ondansetron HCl (Zofran Odt) 4 mg PO Q6H PRN PRN Reason: Nausea/Vomiting Ondansetron HCl (Zofran) 4 mg IVP Q6H PRN PRN Reason: Nausea/Vomiting Ramipril (Altace) 5 mg PO DAILY [facility] Last Admin: 07/12/17 09:39 Dose: 5 mg Tizanidine HCl (Zanaflex) 4 mg PO TID PRN PRN Reason: Pain Last Admin: 07/12/17 21:27 Dose: 4 mg
[2017-07-13 05:23] LABS: Hemoglobin 12.7 g/dL (12.0-16.0); Platelet Count 612 thou/uL (130-400)
[2017-07-13 05:43] LABS: Anion Gap 11 mmol/L (10-20); BUN (Urea Nitrogen) 19 mg/dL (9.8-20.1); Calc. Creatinine Clearance 117 mL/min (70-130); Calcium 9.6 mg/dL (7.8-10.44); Carbon Dioxide 32 mmol/L (23-31); Chloride 100 mmol/L (98-107); Estimated GFR-MDRD 87; Glucose 133 mg/dL (80-115); Magnesium 2.8 mg/dL (1.6-2.6); Potassium 4.2 mmol/L (3.5-5.1); Sodium 139 mmol/L (136-145)
[2017-07-13] MEDS: Mometasone/Formoterol 120 PUFF INHALER INH SCH ×2 (09:04→19:24)
[2017-07-13] MEDS: Ramipril 5 MG CAP PO SCH (09:11)
[2017-07-13] MEDS: Furosemide 20 MG TAB PO SCH (09:11)
[2017-07-13] MEDS: Aspirin 81 mg Enteric Coated Tablet PO SCH (09:11)
[2017-07-13] MEDS: Metoprolol Tartrate 25 MG TAB PO SCH ×2 (09:11→21:06)
[2017-07-13] MEDS: Hydroxyurea 500 MG CAP PO SCH ×2 (09:11→11:56)
[2017-07-13] MEDS: Digoxin 0.125 MG TAB PO SCH (09:11)
[2017-07-13] MEDS: Famotidine 20 MG TAB PO SCH ×2 (09:12→21:06)
[2017-07-13] MEDS: Enoxaparin Sodium 40 MG/0.4 ML SYRINGE SC SCH (09:12)
[2017-07-13] MEDS: Montelukast Sodium 10 mg Tablet PO SCH (09:12)
[2017-07-13] MEDS: Ubidecarenone 50 MG CAP PO SCH (09:12)
[2017-07-13] MEDS: Docusate 100 MG CAP PO SCH ×2 (09:12→21:06)
--- NOTE | 2017-07-13 15:56 | PDOC.PN ---
- Subjective Encounter Start Date: 07/13/17 Encounter Start Time: 14:30 Patient seen and examined. SOB +. No overnight events - Objective Resuscitation Status: Resuscitation Status FULL:Full Resuscitation MAR Reviewed: Yes Vital Signs & Weight: Vital Signs (12 hours) Temp Pulse Resp BP BP Pulse Ox 07/13/17 11:35 97.9 F 81 20 172/79 H 96 07/13/17 09:11 106 H 144/79 H 07/13/17 09:04 81 20 96 07/13/17 08:46 96 07/13/17 08:45 81 20 96 07/13/17 08:00 98.2 F 81 20 07/13/17 07:27 98.2 F 68 20 144/79 H 98 Weight Weight 195 lb 3.2 oz I&O: 07/12/17 07/13/17 07/14/17 06:59 06:59 06:59 Intake Total 1270 1390 480 Balance 1270 1390 480 Result Diagrams: 07/13/17 04:26 07/13/17 04:26 EKG Reviewed by me: Yes (Tele SR) Phys Exam - Physical Examination Constitutional: NAD Respiratory: no wheezing, no rales Scat rhonchi Cardiovascular: RRR, no rub Gastrointestinal: soft, non-tender, positive bowel sounds Neurological: moves all 4 limbs Dx/Plan - Plan DVT proph w/lovenox, DVT proph w/SCDs IMPRESSION: 1. COPD Exacerbation - on IV steroids/nebs 2. Chronic resp failure on home O2 - 2 lit at home 3. HLD 4. CAD 5. Other issues per H&P PLAN: * Cont IV Steroids/Nebs/O2 * Pulm following * AM labs * Cont to monitor * DC in 1-2 days if stable Review of Systems - Review of Systems Cardiovascular: negative: chest pain, palpitations, orthopnea, paroxysmal nocturnal dyspnea, edema, light headedness Gastrointestinal: negative: Nausea, Vomiting, Abdominal Pain, Diarrhea, Constipation, Melena, Hematochezia - Medications/Allergies Allergies/Adverse Reactions: Allergies Allergy/AdvReac Type Severity Reaction Status Date / Time adhesive Allergy Verified 12/06/12 09:46 morphine Allergy Verified 05/22/17 17:56 vancomycin Allergy Verified 05/22/17 17:56 Medications: Current Medications Acetaminophen (Tylenol) 650 mg PO Q4H PRN PRN Reason: Headache/Fever or Pain Last Admin: 07/12/17 18:41 Dose: 650 mg Acetaminophen (Tylenol) 650 mg [place] Q4H PRN PRN Reason: Headache/Fever or Pain Albuterol/Ipratropium (Duoneb) 3 ml NEB Q4H PRN PRN Reason: SOB &/or Wheezing Albuterol/Ipratropium (Duoneb) 3 ml NEB [id number] [facility] Last Admin: 07/13/17 08:45 Dose: 3 ml Aspirin (Ecotrin) 81 mg PO DAILY [facility] Last Admin: 07/13/17 09:11 Dose: 81 mg Atorvastatin Calcium (Lipitor) 40 mg PO HS [facility] Last Admin: 07/12/17 21:27 Dose: 40 mg Bisacodyl (Dulcolax) 10 mg PO DAILYPRN PRN PRN Reason: Constipation Coenzyme Q10 (Coenzyme Q10) 100 mg PO DAILY [facility] Last Admin: 07/13/17 09:12 Dose: 100 mg Digoxin (Lanoxin) 0.125 mg PO QAM [facility] Last Admin: 07/13/17 09:11 Dose: 0.125 mg Docusate Sodium (Colace) 100 mg PO BID [facility] Last Admin: 07/13/17 09:12 Dose: Not Given Enoxaparin Sodium (Lovenox) 40 mg SC 0900 [facility] Last Admin: 07/13/17 09:12 Dose: 40 mg Famotidine (Pepcid) 20 mg PO BID [facility] Last Admin: 07/13/17 09:12 Dose: 20 mg Furosemide (Lasix) 20 mg PO DAILY [facility] Last Admin: 07/13/17 09:11 Dose: 20 mg Guaifenesin (Robitussin Sf) 200 mg PO Q4H PRN PRN Reason: Cough Guaifenesin (Robitussin Sf) 400 mg PO TID [facility] Hydroxyurea (Hydrea) 500 mg PO 0900,1200 [facility] Last Admin: 07/13/17 11:56 Dose: 500 mg Methylprednisolone Sodium Succinate (Solu-Medrol) 40 mg IVP Q6HR [facility] Last Admin: 07/13/17 11:56 Dose: 40 mg Metoprolol Tartrate (Lopressor) 25 mg PO BID [facility] Last Admin: 07/13/17 09:11 Dose: 25 mg Mometasone Furoate/Formoterol Fumar (Dulera 200 Mcg/5 Mcg Inhaler) 2 puff INH BID-RT [facility] Last Admin: 07/13/17 09:04 Dose: 2 puff Montelukast Sodium (Singulair) 10 mg PO DAILY [facility] Last Admin: 07/13/17 09:12 Dose: 10 mg Ondansetron HCl (Zofran Odt) 4 mg PO Q6H PRN PRN Reason: Nausea/Vomiting Ondansetron HCl (Zofran) 4 mg IVP Q6H PRN PRN Reason: Nausea/Vomiting Ramipril (Altace) 5 mg PO DAILY [facility] Last Admin: 07/13/17 09:11 Dose: 5 mg Tizanidine HCl (Zanaflex) 4 mg PO TID PRN PRN Reason: Pain Last Admin: 07/12/17 21:27 Dose: 4 mg
[2017-07-13] MEDS: Acetaminophen 325 MG TAB PO PRN (16:08)
[2017-07-13] MEDS: Diabetic Tussin 200 MG/10 ML UDCUP PO SCH (21:05)
[2017-07-13] MEDS: Atorvastatin Calcium 40 MG TAB PO SCH (21:06)
[2017-07-13] MEDS: tiZANidine HCl 4 MG TAB PO PRN (21:14)
--- NOTE | 2017-07-13 22:43 | PRG ---
DATE OF SERVICE: 07/13/2017 SERVICE: Pulmonary Medicine. INTERVAL HISTORY: The patient is doing poorly from a respiratory standpoint. If anything, she is shore ving increasing respiratory difficulty. She has improved much since she has been here. She denies a ny current fevers, chills, nausea, vomiting or chest discomfort. PHYSICAL EXAMINATION: VITAL SIGNS: Afebrile, pulse 94, blood pressure 132/62, respirations 16, saturation 96% on 2 liters nasal cannula. GENERAL: The patient is awake, alert, no apparent distress. LUNGS: Decent air entry with prolonged expiratory phase, wheezing or crackles or both present. HEART: Normal rate, regular. ABDOMEN: Soft, nontender, nondistended. Bowel sounds positive. MUSCULOSKELETAL: No cyanosis or clubbing. There is 2+ to 3+ pitting in the bilateral lower extremit ies with bilateral red changes to both feet consistent with stasis. LABORATORY DATA: Hemoglobin 12.7. Platelets 612. INR 1.0. Basic metabolic profile is essentially unremarkable. ASSESSMENT: 1. Acute on chronic hypoxic respiratory failure. 2. Chronic obstructive pulmonary disease with acute exacerbation. PLAN: I will transition her over to p.o. prednisone. I will give her 2 doses of Lasix tomorrow morn ing. Pulmonary Critical Care will continue to follow while the patient remains in this location.
[2017-07-14] MEDS: Furosemide 20 MG/2 ML VIAL SLOW IVP SCH ×2 (06:17→14:52)
[2017-07-14] MEDS: predniSONE 20 MG TAB PO SCH (08:36)
[2017-07-14] MEDS: Aspirin 81 mg Enteric Coated Tablet PO SCH (08:36)
[2017-07-14] MEDS: Digoxin 0.125 MG TAB PO SCH (08:36)
[2017-07-14] MEDS: Diabetic Tussin 200 MG/10 ML UDCUP PO SCH ×3 (08:37→20:11)
[2017-07-14] MEDS: Enoxaparin Sodium 40 MG/0.4 ML SYRINGE SC SCH (08:37)
[2017-07-14] MEDS: Hydroxyurea 500 MG CAP PO SCH ×2 (08:38→11:40)
[2017-07-14] MEDS: Ramipril 5 MG CAP PO SCH (08:38)
[2017-07-14] MEDS: Montelukast Sodium 10 mg Tablet PO SCH (08:38)
[2017-07-14] MEDS: Metoprolol Tartrate 25 MG TAB PO SCH ×2 (08:38→20:11)
[2017-07-14] MEDS: Acetaminophen 325 MG TAB PO PRN ×2 (08:39→11:43)
[2017-07-14] MEDS: Ubidecarenone 50 MG CAP PO SCH (08:39)
[2017-07-14] MEDS: Docusate 100 MG CAP PO SCH ×2 (08:41→20:04)
[2017-07-14] MEDS: Mometasone/Formoterol 120 PUFF INHALER INH SCH ×2 (10:07→18:23)
--- NOTE | 2017-07-14 13:15 | PDOC.PN ---
- Subjective Encounter Start Date: 07/14/17 Encounter Start Time: 13:12 Patient seen at bedside. Still SOB, walked this morning and had TRIMBLE. No C/P - Objective Resuscitation Status: Resuscitation Status FULL:Full Resuscitation MAR Reviewed: Yes Vital Signs & Weight: Vital Signs (12 hours) Temp Pulse Resp BP BP Pulse Ox 07/14/17 11:44 97.9 F 67 20 151/70 H 96 07/14/17 10:07 62 20 97 07/14/17 09:55 97 07/14/17 09:52 62 20 97 07/14/17 08:38 161/75 H 07/14/17 08:36 72 07/14/17 08:00 98.5 F 62 20 161/75 H 97 07/14/17 04:25 97.2 F L 78 20 152/67 H 96 Weight Weight 195 lb 3.2 oz I&O: 07/13/17 07/14/17 07/15/17 06:59 06:59 06:59 Intake Total 1390 2067 Balance 1390 2067 Result Diagrams: 07/13/17 04:26 07/13/17 04:26 Phys Exam - Physical Examination Constitutional: NAD HEENT: moist MMs Neck: no JVD Decreased B/S B/L, minimal wheezing Cardiovascular: RRR Gastrointestinal: soft Musculoskeletal: pulses present Neurological: moves all 4 limbs Psychiatric: A&O x 3 Dx/Plan (1) Atrial fibrillation Code(s): I48.91 - UNSPECIFIED ATRIAL FIBRILLATION Status: Resolved Qualifiers: Atrial fibrillation type: paroxysmal Qualified Code(s): I48.0 - Paroxysmal atrial fibrillation Comment: not on Coumadin anymore (2) COPD exacerbation Code(s): J44.1 - CHRONIC OBSTRUCTIVE PULMONARY DISEASE W (ACUTE) EXACERBATION Status: Acute (3) Coronary artery disease Code(s): I25.10 - ATHSCL HEART DISEASE OF [place] CORONARY ARTERY W/O ANG PCTRS Status: Chronic (4) Hypertension Code(s): I10 - ESSENTIAL (PRIMARY) HYPERTENSION Status: Chronic - Plan cont current plan of care, PT/OT, social scientist, respiratory therapy, out of bed/ambulate, DVT proph w/SCDs * Continue with PO prednisone. * Lasix x 3 doses * Duonebs * Supplemental 02 * Given degree of Dyspnea on exertion, will need further treatment and monitoring. * OOB as tolerates
[2017-07-14] MEDS: tiZANidine HCl 4 MG TAB PO PRN (20:10)
[2017-07-14] MEDS: Atorvastatin Calcium 40 MG TAB PO SCH (20:11)
--- NOTE | 2017-07-14 23:17 | PRG ---
DATE OF SERVICE: 07/14/2017 SERVICE: Pulmonary Medicine. INTERVAL HISTORY: The patient is doing fine from a respiratory standpoint. She is breathing comfort ably on room air. She denies any current fevers, chills, nausea, vomiting, or chest discomfort. Her breathing has not changed much since yesterday. She is really happy with the significant reduction in the lower extremity swelling. She is no longer having foot pain. PHYSICAL EXAMINATION: VITAL SIGNS: Afebrile, pulse 77, blood pressure 138/66, respirations 16, saturation 97% on 2 liters nasal cannula. GENERAL: Patient is awake, alert, in no apparent distress. LUNGS: Really improved air entry. She also has quite a bit less crackling or rhonchi. There is sli ghtly prolonged expiratory phase, but no overt wheezing. HEART: Normal rate, regular. ABDOMEN: Soft, nontender, nondistended. Bowel sounds are positive. MUSCULOSKELETAL: No cyanosis or clubbing. No pitting in the bilateral lower extremities. NEUROLOGIC: Grossly nonfocal. ASSESSMENT: 1. Acute on chronic hypoxic respiratory failure. 2. Chronic obstructive pulmonary disease with acute exacerbation. PLAN: We will repeat laboratories tomorrow morning. We will continue to diurese the patient until s he is little closer euvolemia, but I think I will back off and just do once daily for the time being and revaluate whether or not she can use an extra dose in the afternoon. Pulmonary Critical Care prisca coats continue to follow while she remains in this location.
[2017-07-15] MEDS: Furosemide 20 MG/2 ML VIAL SLOW IVP SCH (05:40)
[2017-07-15 06:16] LABS: Anion Gap 15 mmol/L (10-20); BUN (Urea Nitrogen) 22 mg/dL (9.8-20.1); Calc. Creatinine Clearance 115 mL/min (70-130); Calcium 9.2 mg/dL (7.8-10.44); Carbon Dioxide 32 mmol/L (23-31); Chloride 96 mmol/L (98-107); Estimated GFR-MDRD 86; Glucose 86 mg/dL (80-115); Magnesium 2.4 mg/dL (1.6-2.6); Potassium 3.9 mmol/L (3.5-5.1); Sodium 139 mmol/L (136-145)
[2017-07-15] MEDS: predniSONE 20 MG TAB PO SCH (08:08)
[2017-07-15] MEDS: Aspirin 81 mg Enteric Coated Tablet PO SCH (08:09)
[2017-07-15] MEDS: Digoxin 0.125 MG TAB PO SCH (08:09)
[2017-07-15] MEDS: Enoxaparin Sodium 40 MG/0.4 ML SYRINGE SC SCH (08:09)
[2017-07-15] MEDS: Metoprolol Tartrate 25 MG TAB PO SCH ×2 (08:10→20:12)
[2017-07-15] MEDS: Montelukast Sodium 10 mg Tablet PO SCH (08:10)
[2017-07-15] MEDS: Ramipril 5 MG CAP PO SCH (08:10)
[2017-07-15] MEDS: Hydroxyurea 500 MG CAP PO SCH ×2 (08:10→12:17)
[2017-07-15] MEDS: Acetaminophen 325 MG TAB PO PRN ×2 (08:11→17:26)
[2017-07-15] MEDS: Diabetic Tussin 200 MG/10 ML UDCUP PO SCH ×3 (08:11→20:12)
[2017-07-15] MEDS: Ubidecarenone 50 MG CAP PO SCH (08:11)
[2017-07-15] MEDS: Docusate 100 MG CAP PO SCH ×2 (08:16→20:12)
[2017-07-15] MEDS: Mometasone/Formoterol 120 PUFF INHALER INH SCH ×2 (09:24→18:21)
--- NOTE | 2017-07-15 18:05 | PRG ---
DATE OF SERVICE: 07/15/2017 SERVICE: Pulmonary Medicine. INTERVAL HISTORY: The patient is doing fine from a respiratory standpoint. Her breathing is about s table. She is 50% back to baseline, but still feels a little tight in the chest. Otherwise, there h as been no interval change to her condition. PHYSICAL EXAMINATION: VITAL SIGNS: Afebrile, pulse 70, blood pressure 148/65, respirations 20, saturation 92% on 2 liters nasal cannula. GENERAL: The patient is awake and alert, in no apparent distress. LUNGS: Improved air entry. There is a prolonged expiratory phase. Crackles are still present. HEART: Normal rate, regular. ABDOMEN: Soft, nontender, nondistended, bowel sounds positive. MUSCULOSKELETAL: No cyanosis or clubbing. There is 2+ pitting limited to the distal leg at this poi nt. GENITOURINARY: No Chase catheter in place. NEUROLOGIC: Grossly nonfocal. LABORATORY DATA: Bicarbonate 32. Basic metabolic profile is otherwise unremarkable. Magnesium 2.4. ASSESSMENT: 1. Acute on chronic hypoxic respiratory failure. 2. Chronic obstructive pulmonary disease with acute exacerbation. PLAN: We will continue to diurese the patient until she returns little closer to euvolemia. We will likely escalate to twice daily starting tomorrow morning once again. I would like to give her a mame ef break as she has developed touch of contraction alkalosis. Pulmonary will continue to follow. Mk moreira is getting close to be considered for discharge from the hospital though she does not feel stable f or discharge at this time.
[2017-07-15] MEDS: tiZANidine HCl 4 MG TAB PO PRN (20:12)
[2017-07-15] MEDS: Atorvastatin Calcium 40 MG TAB PO SCH (20:12)
--- NOTE | 2017-07-15 21:24 | PDOC.PN ---
- Subjective Encounter Start Date: 07/15/17 Encounter Start Time: 17:30 Patient seen and examined. Feels gen weak. SOB on mild exertion. No overnight events - Objective Resuscitation Status: Resuscitation Status FULL:Full Resuscitation MAR Reviewed: Yes Vital Signs & Weight: Vital Signs (12 hours) Temp Pulse Resp BP Pulse Ox 07/15/17 18:21 75 18 95 07/15/17 18:20 75 18 95 07/15/17 15:56 97.9 F 77 20 142/66 H 92 L 07/15/17 14:58 76 20 07/15/17 11:41 98.2 F 70 20 148/65 H 92 L Weight Weight 195 lb 3.2 oz I&O: 07/14/17 07/15/17 07/16/17 06:59 06:59 06:59 Intake Total 2066 472 380 Balance 2066 472 380 Result Diagrams: 07/13/17 04:26 07/16/17 04:29 EKG Reviewed by me: Yes (Tele SR) Phys Exam - Physical Examination Constitutional: NAD Respiratory: no wheezing, no rales Coarse BS B/L Cardiovascular: RRR, no rub Gastrointestinal: soft, non-tender, positive bowel sounds Musculoskeletal: no edema Neurological: moves all 4 limbs Dx/Plan - Plan DVT proph w/lovenox, DVT proph w/SCDs IMPRESSION: 1. COPD Exacerbation - on IV steroids/nebs 2. Chronic resp failure on home O2 - 2 lit at home 3. HLD 4. CAD 5. Other issues per H&P PLAN: * AM labs * Cont Steroids/Nebs/O2/Diuretics * Pulm following * Cont to monitor Review of Systems - Medications/Allergies Allergies/Adverse Reactions: Allergies Allergy/AdvReac Type Severity Reaction Status Date / Time adhesive Allergy Verified 12/06/12 09:46 morphine Allergy Verified 05/22/17 17:56 vancomycin Allergy Verified 05/22/17 17:56 Medications: Current Medications Acetaminophen (Tylenol) 650 mg PO Q4H PRN PRN Reason: Headache/Fever or Pain Last Admin: 07/15/17 17:26 Dose: 650 mg Acetaminophen (Tylenol) 650 mg ND Q4H PRN PRN Reason: Headache/Fever or Pain Albuterol/Ipratropium (Duoneb) 3 ml NEB Q4H PRN PRN Reason: SOB &/or Wheezing Albuterol/Ipratropium (Duoneb) 3 ml NEB [id number] [facility] Last Admin: 07/15/17 18:20 Dose: 3 ml Aspirin (Ecotrin) 81 mg PO DAILY [facility] Last Admin: 07/15/17 08:09 Dose: 81 mg Atorvastatin Calcium (Lipitor) 40 mg PO HS [facility] Last Admin: 07/15/17 20:12 Dose: 40 mg Bisacodyl (Dulcolax) 10 mg PO DAILYPRN PRN PRN Reason: Constipation Coenzyme Q10 (Coenzyme Q10) 100 mg PO DAILY [facility] Last Admin: 07/15/17 08:11 Dose: 100 mg Digoxin (Lanoxin) 0.125 mg PO QAM [facility] Last Admin: 07/15/17 08:09 Dose: 0.125 mg Docusate Sodium (Colace) 100 mg PO BID [facility] Last Admin: 07/15/17 20:12 Dose: 100 mg Enoxaparin Sodium (Lovenox) 40 mg SC 0900 [facility] Last Admin: 07/15/17 08:09 Dose: 40 mg Furosemide (Lasix) 20 mg SLOW IVP 0600,1400 [facility] Stop: 07/17/17 06:01 Guaifenesin (Robitussin Sf) 200 mg PO Q4H PRN PRN Reason: Cough Last Admin: 07/13/17 16:08 Dose: 200 mg Guaifenesin (Robitussin Sf) 400 mg PO TID [facility] Last Admin: 07/15/17 20:12 Dose: 400 mg Hydroxyurea (Hydrea) 500 mg PO 0900,1200 [facility] Last Admin: 07/15/17 12:17 Dose: 500 mg Metoprolol Tartrate (Lopressor) 25 mg PO BID [facility] Last Admin: 07/15/17 20:12 Dose: 25 mg Mometasone Furoate/Formoterol Fumar (Dulera 200 Mcg/5 Mcg Inhaler) 2 puff INH BID-RT [facility] Last Admin: 07/15/17 18:21 Dose: 2 puff Montelukast Sodium (Singulair) 10 mg PO DAILY [facility] Last Admin: 07/15/17 08:10 Dose: 10 mg Ondansetron HCl (Zofran Odt) 4 mg PO Q6H PRN PRN Reason: Nausea/Vomiting Ondansetron HCl (Zofran) 4 mg IVP Q6H PRN PRN Reason: Nausea/Vomiting Prednisone (Prednisone) 40 mg PO QAM-WM [facility] Last Admin: 07/15/17 08:08 Dose: 40 mg Ramipril (Altace) 5 mg PO DAILY [facility] Last Admin: 07/15/17 08:10 Dose: 5 mg Tizanidine HCl (Zanaflex) 4 mg PO TID PRN PRN Reason: Pain Last Admin: 07/15/17 20:12 Dose: 4 mg
[2017-07-16 06:01] LABS: Anion Gap 12 mmol/L (10-20); BUN (Urea Nitrogen) 20 mg/dL (9.8-20.1); Calc. Creatinine Clearance 121 mL/min (70-130); Calcium 9.4 mg/dL (7.8-10.44); Carbon Dioxide 36 mmol/L (23-31); Chloride 96 mmol/L (98-107); Estimated GFR-MDRD 90; Glucose 69 mg/dL (80-115); Magnesium 2.6 mg/dL (1.6-2.6); Potassium 3.7 mmol/L (3.5-5.1); Sodium 140 mmol/L (136-145)
[2017-07-16] MEDS: Furosemide 20 MG/2 ML VIAL SLOW IVP SCH ×2 (06:23→14:36)
[2017-07-16] MEDS: Docusate 100 MG CAP PO SCH ×2 (07:56→21:28)
[2017-07-16] MEDS: Diabetic Tussin 200 MG/10 ML UDCUP PO SCH ×3 (07:56→21:27)
[2017-07-16] MEDS: Ramipril 5 MG CAP PO SCH (07:57)
[2017-07-16] MEDS: Aspirin 81 mg Enteric Coated Tablet PO SCH (07:57)
[2017-07-16] MEDS: Hydroxyurea 500 MG CAP PO SCH ×2 (07:57→12:00)
[2017-07-16] MEDS: Ubidecarenone 50 MG CAP PO SCH (07:58)
[2017-07-16] MEDS: Digoxin 0.125 MG TAB PO SCH (07:58)
[2017-07-16] MEDS: Metoprolol Tartrate 25 MG TAB PO SCH ×2 (07:58→21:28)
[2017-07-16] MEDS: Enoxaparin Sodium 40 MG/0.4 ML SYRINGE SC SCH (07:58)
[2017-07-16] MEDS: Montelukast Sodium 10 mg Tablet PO SCH (07:58)
[2017-07-16] MEDS: predniSONE 20 MG TAB PO SCH (07:58)
[2017-07-16] MEDS: Acetaminophen 325 MG TAB PO PRN ×3 (08:03→17:11)
[2017-07-16] MEDS: Mometasone/Formoterol 120 PUFF INHALER INH SCH ×3 (09:05→19:01)
[2017-07-16] MEDS: tiZANidine HCl 4 MG TAB PO PRN (21:28)
[2017-07-16] MEDS: Atorvastatin Calcium 40 MG TAB PO SCH (21:28)
--- NOTE | 2017-07-16 21:57 | PDOC.PN ---
- Subjective Encounter Start Date: 07/16/17 Encounter Start Time: 18:00 Patient seen and examined. No new complaints. SOB improving. No overnight events - Objective Resuscitation Status: Resuscitation Status FULL:Full Resuscitation MAR Reviewed: Yes Vital Signs & Weight: Vital Signs (12 hours) Temp Pulse Resp BP Pulse Ox 07/16/17 20:00 97.7 F 75 18 125/67 98 07/16/17 19:00 77 16 98 07/16/17 15:05 97.8 F 80 20 117/57 L 95 07/16/17 11:41 84 16 07/16/17 11:05 97.6 F 70 20 126/72 94 L Weight Weight 196 lb I&O: 07/15/17 07/16/17 07/17/17 06:59 06:59 06:59 Intake Total 472 1150 1200 Balance 472 1150 1200 Result Diagrams: 07/17/17 04:53 07/17/17 04:53 EKG Reviewed by me: Yes (Tele SR) Phys Exam - Physical Examination Constitutional: NAD Respiratory: no wheezing, no rhonchi Cardiovascular: RRR, no rub Gastrointestinal: soft, non-tender, positive bowel sounds Musculoskeletal: no edema Neurological: moves all 4 limbs Dx/Plan - Plan DVT proph w/SCDs IMPRESSION: 1. COPD Exacerbation - on IV steroids/nebs 2. Chronic resp failure on home O2 - 2 lit at home 3. HLD 4. CAD 5. Other issues per H&P PLAN: * AM labs * Cont Steroids/Nebs/O2/Diuretics * Pulm following * Cont to monitor * Probable dc in AM if ok with Pulmonary Review of Systems - Review of Systems Gastrointestinal: negative: Nausea, Vomiting, Abdominal Pain, Diarrhea, Constipation, Melena, Hematochezia Genitourinary: negative: Dysuria, Frequency, Incontinence, Hematuria, Retention - Medications/Allergies Allergies/Adverse Reactions: Allergies Allergy/AdvReac Type Severity Reaction Status Date / Time adhesive Allergy Verified 12/06/12 09:46 morphine Allergy Verified 05/22/17 17:56 vancomycin Allergy Verified 05/22/17 17:56 Medications: Current Medications Acetaminophen (Tylenol) 650 mg PO Q4H PRN PRN Reason: Headache/Fever or Pain Last Admin: 07/16/17 17:11 Dose: 650 mg Acetaminophen (Tylenol) 650 mg [place] Q4H PRN PRN Reason: Headache/Fever or Pain Albuterol/Ipratropium (Duoneb) 3 ml NEB Q4H PRN PRN Reason: SOB &/or Wheezing Albuterol/Ipratropium (Duoneb) 3 ml NEB [id number] [facility] Last Admin: 07/16/17 19:00 Dose: 3 ml Aspirin (Ecotrin) 81 mg PO DAILY [facility] Last Admin: 07/16/17 07:57 Dose: 81 mg Atorvastatin Calcium (Lipitor) 40 mg PO HS [facility] Last Admin: 07/16/17 21:28 Dose: 40 mg Bisacodyl (Dulcolax) 10 mg PO DAILYPRN PRN PRN Reason: Constipation Last Admin: 07/16/17 06:30 Dose: 10 mg Coenzyme Q10 (Coenzyme Q10) 100 mg PO DAILY [facility] Last Admin: 07/16/17 07:58 Dose: 100 mg Digoxin (Lanoxin) 0.125 mg PO QAM [facility] Last Admin: 07/16/17 07:58 Dose: 0.125 mg Docusate Sodium (Colace) 100 mg PO BID [facility] Last Admin: 07/16/17 21:28 Dose: Not Given Enoxaparin Sodium (Lovenox) 40 mg SC 0900 [facility] Last Admin: 07/16/17 07:58 Dose: 40 mg Furosemide (Lasix) 20 mg SLOW IVP 0600,1400 [facility] Stop: 07/17/17 06:01 Last Admin: 07/16/17 14:36 Dose: 20 mg Guaifenesin (Robitussin Sf) 200 mg PO Q4H PRN PRN Reason: Cough Last Admin: 07/13/17 16:08 Dose: 200 mg Guaifenesin (Robitussin Sf) 400 mg PO TID [facility] Last Admin: 07/16/17 21:27 Dose: Not Given Hydroxyurea (Hydrea) 500 mg PO 0900,1200 [facility] Last Admin: 07/16/17 12:00 Dose: 500 mg Metoprolol Tartrate (Lopressor) 25 mg PO BID [facility] Last Admin: 07/16/17 21:28 Dose: 25 mg Mometasone Furoate/Formoterol Fumar (Dulera 200 Mcg/5 Mcg Inhaler) 2 puff INH BID-RT [facility] Last Admin: 07/16/17 19:01 Dose: 2 puff Montelukast Sodium (Singulair) 10 mg PO DAILY [facility] Last Admin: 07/16/17 07:58 Dose: 10 mg Ondansetron HCl (Zofran Odt) 4 mg PO Q6H PRN PRN Reason: Nausea/Vomiting Ondansetron HCl (Zofran) 4 mg IVP Q6H PRN PRN Reason: Nausea/Vomiting Prednisone (Prednisone) 40 mg PO QA-[facility] Last Admin: 07/16/17 07:58 Dose: 40 mg Ramipril (Altace) 5 mg PO DAILY [facility] Last Admin: 07/16/17 07:57 Dose: 5 mg Tizanidine HCl (Zanaflex) 4 mg PO TID PRN PRN Reason: Pain Last Admin: 07/16/17 21:28 Dose: 4 mg
[2017-07-17 01:06] VITALS: TEMP 97.4
[2017-07-17] MEDS: Furosemide 20 MG/2 ML VIAL SLOW IVP SCH (05:16)
[2017-07-17 06:12] LABS: #Basophils 0.1 thou/uL (0.0-0.2); #Lymphocytes 2.5 thou/uL (1.20-3.40); #Monocytes 0.5 thou/uL (0.11-0.59); #Neutrophils 5.7 thou/uL (1.40-6.50); %Basophils 1.6 % (0.0-1.0); %Eosinophils 0.4 % (0.0-10.0); %Lymphocytes 28.4 % (21.0-51.0); %Monocytes 5.7 % (0.0-10.0); %Neutrophils 63.9 % (42.0-75.0); Anion Gap 12 mmol/L (10-20); BUN (Urea Nitrogen) 27 mg/dL (9.8-20.1); Calc. Creatinine Clearance 112 mL/min (70-130); Calcium 9.4 mg/dL (7.8-10.44); Carbon Dioxide 37 mmol/L (23-31); Chloride 94 mmol/L (98-107); Estimated GFR-MDRD 83; Glucose 81 mg/dL (80-115); Hemoglobin 14.1 g/dL (12.0-16.0); Magnesium 2.6 mg/dL (1.6-2.6); Mean Corpuscular HGB CONC 31.6 g/dL (32.0-36.0); Mean Corpuscular Hemoglobin 29.1 pg (27.0-31.0); Mean Corpuscular Volume 92.3 fl (81.0-99.0); Mean Platelet Volume 6.5 fL (7.4-10.4); Platelet Count 539 thou/uL (130-400); Potassium 3.5 mmol/L (3.5-5.1); Red Blood Cell (RBC) Count 4.84 mill/uL (4.20-5.40); Sodium 139 mmol/L (136-145); White Blood Cell (WBC) Count 8.9 thou/uL (4.8-10.8)
[2017-07-17] MEDS: Mometasone/Formoterol 120 PUFF INHALER INH SCH (06:17)
[2017-07-17 07:44] VITALS: BP 126/58
[2017-07-17] MEDS: Digoxin 0.125 MG TAB PO SCH (07:56)
[2017-07-17] MEDS: Aspirin 81 mg Enteric Coated Tablet PO SCH (07:56)
[2017-07-17] MEDS: predniSONE 20 MG TAB PO SCH (07:57)
[2017-07-17] MEDS: Metoprolol Tartrate 25 MG TAB PO SCH (07:57)
[2017-07-17] MEDS: Enoxaparin Sodium 40 MG/0.4 ML SYRINGE SC SCH (07:57)
[2017-07-17] MEDS: Ramipril 5 MG CAP PO SCH (07:57)
[2017-07-17] MEDS: Montelukast Sodium 10 mg Tablet PO SCH (07:57)
[2017-07-17] MEDS: Ubidecarenone 50 MG CAP PO SCH (07:57)
[2017-07-17] MEDS: Hydroxyurea 500 MG CAP PO SCH (07:57)
[2017-07-17] MEDS: Diabetic Tussin 200 MG/10 ML UDCUP PO SCH (08:00)
[2017-07-17] MEDS: Docusate 100 MG CAP PO SCH (08:00)
[2017-07-17] MEDS: Acetaminophen 325 MG TAB PO PRN (08:02)
--- NOTE | 2017-07-17 17:16 | DIS ---
DATE OF DISCHARGE: 07/17/2017 DISCHARGE DISPOSITION: Home. FOLLOWUP: Follow up with primary care physician, Dr. Kim Post, in 1 week[address] Follow up with Dr. Nikita Phelan as scheduled. ALLERGIES: The patient is allergic to MORPHINE, VANCOMYCIN and ADHESIVES. The patient was seen and examined on the day of discharge. Denies any new complaints. No chest pain , shortness of breath, palpitations reported. DISCHARGE MEDICATIONS: Prednisone 40 mg daily for next 5 days, then change to 20 mg daily (home dose ). Other home medications were resumed including, 1. Albuterol inhalers. 2. Aspirin 81 mg daily. 3. Lipitor 40 mg at bedtime. 4. Digoxin 0.125 mg q.a.m. 5. Pepcid 20 mg b.i.d. 6. Lasix 20 mg daily. 7. Hydroxyurea 500 mg as directed. 8. Lopressor 25 mg b.i.d. 9. Singulair 10 mg daily. 10. Ramipril 5 mg daily. 11. Tizanidine 4 mg three times daily as needed. 12. Coenzyme Q10 100 mg daily. INPATIENT CONSULTANTS: Pulmonary, Dr. Phelan. BRIEF HOSPITAL COURSE: The patient is a 62-year-old female with COPD with chronic respiratory failur e, on home oxygen, presented to the hospital with worsening shortness of breath. Please note that cheo barkley was discharged from this facility on 07/06/2017 for similar complaint. Please refer to the his tory and physical dated 07/10/2017 for further details. The patient was admitted to the hospital with a diagnosis of COPD exacerbation. She was started on n ebulizer treatment with IV steroids. She also required intermittent IV Lasix. On the day of dischar , she feels much better. Her weight on the day of discharge is 189 pounds compared to 199 pounds o n admission. She probably had some fluid retention from steroids. She was advised to resume her amna e oxygen at 2 liters a minute. She appears stable for discharge. The patient was seen by Pulmonary during this hospital stay. FINAL DIAGNOSES: 1. Severe chronic obstructive pulmonary disease exacerbation. 2. Coronary artery disease. 3. Chronic respiratory failure, on home oxygen. 4. History of paroxysmal atrial fibrillation, currently in sinus rhythm. 5. Hypertension. 6. Hyperlipidemia. 7. Coronary artery disease, status post stent. 8. Peripheral vascular disease. 9. 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 10. Chronic kidney disease stage 2. 11. Leukocytosis on admission unlikely to be infectious 12. Obesity with BMI of 32.5. Plan of care was discussed with the patient in detail. She stated understanding. Total time coordinating the discharge of this patient was 35 minutes.
== END 2017-07-17 11:25 | disposition home or self-care (01) | DRG 190 ==
LOC: ERS 13:05 → 2SE 15:52
PROVIDERS: ADMIT Emergency Medicine; ATTEND Emergency Medicine
DX: J44.1 Chronic obstructive pulmonary disease with (acute) exacerbation (principal); J96.21 Acute and chronic respiratory failure with hypoxia; E87.3 Alkalosis; Z99.81 Dependence on supplemental oxygen; I48.0 Paroxysmal atrial fibrillation; I25.10 Atherosclerotic heart disease of native coronary artery without angina pectoris; I12.9 Hypertensive chronic kidney disease with stage 1 through stage 4 chronic kidney disease, or unspecified chronic kidney disease; N18.2 Chronic kidney disease, stage 2 (mild); E78.5 Hyperlipidemia, unspecified; I73.9 Peripheral vascular disease, unspecified; D47.3 Essential (hemorrhagic) thrombocythemia; D72.829 Elevated white blood cell count, unspecified; E66.9 Obesity, unspecified; Z68.32 Body mass index [BMI] 32.0-32.9, adult; Z98.51 Tubal ligation status; Z87.891 Personal history of nicotine dependence; I25.2 Old myocardial infarction
CPT/HCPCS: 36415; 71045; 80048; 80053; 82550; 82553; 83735; 84484; 85014; 85018; 85025; 85049; 85610; 93005; 94640; 94760; 96365; 96375; G8978-GP-CI; G8978-GP-CJ; G8979-GP-CI; G8979-GP-CJ; G8980-GP-CI; G8980-GP-CJ; G8987-GO-CI; G8988-GO-CI; G8989-GO-CI; J1650; J1940; J1956; J2920; J2930; J7506; J7620